=== PATIENT | female | born 1960 | race Caucasian/White ===

== ENCOUNTER → 2016-05-23 17:24 | Outpatient (CLI) | payer MEDICARE ==
[2015-06-14 07:17] VITALS: BMI 21.7
[~2016-05-23 17:24] MED LIST: LIPITOR10 MG PO; PRILOSEC20 MG PO; ZESTORETIC 10/11 TAB PO
== END | disposition home or self-care (01) ==
LOC: D.MAMMO 16:00
DX: Z12.31 Encounter for screening mammogram for malignant neoplasm of breast (principal)

== ENCOUNTER 2016-11-12 11:27 | Outpatient (CLI) | payer MEDICARE ==
[~2016-11-12] VITALS: Ht 172.7 cm; Wt 67.3 kg
--- NOTE | ~2016-11-12 | HEMODYNAMI ---
PATIENT:DERRICK NOVOA MEDICAL RECORD: [id number] : 64 LOCATION:D.CAT ADMISSION DATE: 11/12/16 Generatedon:11/12/201614:41 Patient name: DERRICK NOVOA Patient #: [id number] SSN: : 1960 Date of study: 11/12/2016 Page: Of Hemodynamic Procedure Report Patient Data Patient Demographics Procedure consent was obtained First Name: DERRICK Gender: Female Last Name: SOMMER : 1960 Middle Initial: JAMEY Age: 55 year(s) Patient #: [id number] Race: Unknown Additional ID: [id number] Contact details Address: [address] [place] [address] State: [place] City: [place] Zip code: [facility] Past Medical History Allergies Allergen Reaction Date Comments Reported Codeine 11/12/2016 Other allergy 11/12/2016 HYDROCODONE, STEROIDS, LEVAQUIN Admission Admission Data Admission Date: 11/12/2016 Admission Time: 11:27 Lab Results Lab Result Date: 11/12/2016 Lab Result Time: 0:00 Biochemistry Name Units Result Min Max Creatinine mg/dl 0.8 --(-*--)-- 0.6 1.3 CBC Name Units Result Min Max Hemoglobin g/dl 14.4 --(*---)-- 13.5 17.5 Procedure Procedure Types Cath Procedure Miscellaneous Procedures Moderate Sedation up to 15 minutes Peripheral Cath Diagnostic Procedure Cath Peripheral Renal Arteriogram Procedure Description Procedure Date Procedure Date: 11/12/2016 Procedure Start Time: 14:30 Procedure End Time: 14:40 Procedure Staff Name Function Seth Grossman MD Performing Physician Scarlett Kidd RT Scrub Kumar Weinberg RT Scrub Jonathon Galindo RN Nurse Jose Pham RN Batch Heat Treat Operator Maeve Rosales RT Monitor Procedure Data Cath Procedure Fluoroscopy Diagnostic fluoroscopy Total fluoroscopy Time: 0.7 time: 0.7 min min Diagnostic fluoroscopy Total fluoroscopy dose: 69 dose: 69 mGy mGy Contrast Material Contrast Material Type Amount (ml) Isovue 300 29 Entry Location Entry Primary Successful Side Size Upsize Upsize Entry Closure Succes sful Closure Location (Fr) 1 (Fr) 2 (Fr) Remarks Device Remarks Femoral Right 5 Fr Exoseal artery Estimated blood loss: 5 ml Diagnostic catheters Device Type Used For End Catheter Placement Diagnostic Infinity 5Fr Renal 3DRC catheter arteriography without flush -selective Procedure Medications Medication Administration Route Dosage Oxygen NC 2 l/min 0.9% NaCl I.V. 100 ml/hr Zofran I.V. 4 mg Heparin Flush Bag added to field 2 bags (1000units/500ml NS) Versed I.V. 2 mg Fentanyl I.V. 100 mcg Versed I.V. 1 mg Versed I.V. 1 mg Hemodynamics Rest Heart Rate: 55 (bpm) Pre Cath Intra NCS Post Cath Vital Signs Time Heart Resp SPO2 etCO2 [id number] NIBP (mmHg) Rhythm Pain Sedation Rate (ipm) (%) (mmHg) (mmHg) Status Level (bpm) 14:19:49 56 22 96 0 0 180/95(112) NSR 0 (11) 10(A) , No pain 14:24:11 55 22 97 0 0 178/93(145) NSR 0 (11) 10(A) , No pain 14:28:37 56 16 96 0 0 165/83(116) NSR 0 (11) 10(A) , No pain 14:32:57 56 20 96 0 0 152/82(126) NSR 0 (11) 10(A) , No pain 14:37:13 56 16 95 0 0 161/81(99) NSR 0 (11) 10(A) , No pain Medications Time Medication Route Dose Verified Delivered Reason Notes Effec tiveness by by 14:16:40 Oxygen NC 2 Jonathon Jonathon Per l/min Josie Galindo physician RN RN 14:17:01 0.9% NaCl I.V. 100 Jonathon Jonathon Per ml/hr Josie Galindo physician RN RN 14:17:29 Zofran I.V. 4 mg Jonathon Jonathon Per Josie Galindo physician RN RN 14:17:46 Heparin Flush added 2 Jonathon Jonathon used for Bag to bags Josie Galindo procedure (1000units/500ml field RN RN NS) 14:27:01 Versed I.V. 2 mg Jonathon Jonathon for Lorigan Lorigan sedation RN RN 14:28:15 Fentanyl I.V. 100 Jonathon Jonathon for mcg Lorigan Lorigan sedation RN RN 14:32:38 Versed I.V. 1 mg Jonathon Jonathon for Lorigan Lorigan sedation RN RN 14:37:42 Versed I.V. 1 mg Jonathon Jonathon for Lorigan Lorigan sedation RN healthcare prof Log Time Note 13:56:17 Jose Pham RN sent for patient. Start room use. 13:56:18 Time tracking: Regular hours 13:56:24 Plan of Care:Hemodynamics will remain stable., Cardiac rhythm will remain stable., Comfort level will be maintained., Respiratory function will remain adequate., Patient/ family verbilizes understanding of procedure., Procedure tolerated without complication., Recovers from procedure without complications.. 14:11:58 Patient received from Pre/Post Procedure Room to CCL 1 Alert and oriented. Tansferred to table in Supine position. 14:12:17 Warm blankets applied, and erika hugger turned on for patient comfort. 14:12:18 Correct patient and procedure confirmed by team. 14:12:19 Signed procedure consent form obtained from patient. 14:12:20 ECG and BP/O2 sat monitors applied to patient. 14:13:45 Full Disclosure recording started 14:16:40 Oxygen 2 l/min NC was administered by Jonathon Galindo RN; Per physician; 14:17:01 0.9% NaCl 100 ml/hr I.V. was administered by Jonathon Galindo RN; Per physician; 14:17:29 Zofran 4 mg I.V. was administered by Jonathon Galindo RN; Per physician; 14:17:46 Heparin Flush Bag (1000units/500ml NS) 2 bags added to field was administered by Jonathon Galindo RN; used for procedure; 14:17:52 Vital chart was started 14:18:56 Rhythm: sinus rhythm 14:19:09 H&P Date Dictated: 11/08/2016 Within 30 days and on chart., H&P Addendum completed by physician on day of procedure. (MUST COMPLETE FOR ALL OUTPATIENTS). 14:19:11 Pre-procedure instructions explained to patient. 14:19:11 Pre-op teaching completed and patient verbalized understanding. 14:19:12 Family in patients room. 14:19:20 Patient NPO since Midnight. 14:20:23 Patient allergic to Codeine 14:20:48 Patient allergic to Other allergyHYDROCODONE, STEROIDS, LEVAQUIN 14:20:53 Is the patient allergic to Iodine/contrast media? No. 14:20:56 Is patient on blood thinner?No 14:21:37 Patient diabetic? No. 14:21:41 Previous problem with sedation/anesthesia? No ? 14:21:42 Snore? Yes 14:21:42 Sleep apnea? Yes 14:21:43 Deviated septum? No 14:21:56 Opens mouth fully? Yes 14:21:57 Sticks out tongue? Yes 14:22:05 Airway obstruction? No ? 14:22:09 Dentures? Yes ? 14:22:27 Pre procedure: right dorsailis pedis pulse 2+ Normal; easily identifiable; not easily obliterated 14:22:32 Patient pain scale 0/10 ?. 14:22:39 IV patent on arrival in left hand with 0.9% NaCl at [facility]. 14:23:12 Lab Result : Creatinine 0.8 mg/dl 14:23:12 Lab Result : Hemoglobin 14.4 g/dl 14:23:15 Lab results completed and on chart. 14:23:21 Right groin area was prepped with chlora-prep and draped in sterile fashion 14:23:22 Alarms reviewed by R. N. 14:23:22 Sharps counted by scrub and verified by R.N. 14:23:31 Acist Syringe opened to sterile field. 14:23:31 Bag Decanter opened to sterile field. 14:23:32 Medline Cath Pack opened to sterile field. 14:23:32 Terumo 5Fr [place] Sheath opened to sterile field. 14:23:33 St Mihai 260cm J .035 wire opened to sterile field. 14:23:34 Acist Hand Control opened to sterile field. 14:23:35 Acist Manifold opened to sterile field. 14:23:36 Tegaderm 4 x 4 opened to sterile field. 14:23:51 Final Timeout: patient, procedure, and site verified with staff and physician. All members of the team are in agreement. 14:23:53 Right groin site verified by team. 14:23:55 Physical assessment completed. ASA score P 2 - A patient with mild systemic disease as per Seth Grossmna MD. 14:23:59 Sedation plan: IV Moderate Sedation Versed, Fentanyl 14:27:01 Versed 2 mg I.V. was administered by Jonathon Galindo RN; for sedation; 14:28:15 Fentanyl 100 mcg I.V. was administered by Jonathon Galindo RN; for sedation; 14:28:49 Zero performed for pressure channel P1 14:30:55 Procedure started. 14:30:59 Local anesthetic to right femoral artery with Lidocaine 2% by Seth Grossman MD.INITIAL ACCESS ONLY 14:31:53 A 5 Fr sheath was inserted into the Right Femoral artery 14:32:38 Versed 1 mg I.V. was administered by Jonathon Galindo RN; for sedation; 14:32:51 A Diagnostic Infinity 5Fr 3DRC catheter was advanced over the wire and used for Renal arteriography without flush -selective. 14:35:00 Catheter removed. 14:35:12 Cordis 5Fr Exoseal opened to sterile field. 14:35:24 Sheath removed intact; hemostasis achieved with Exoseal to the Right Femoral artery. 14:35:26 Procedure ended.(Physican Out) 14:35:37 Fluoroscopy time 00.70 minutes. 14:35:40 Flurop Dose total: 69 14:35:40 Fluoroscopy dose: 69 mGy 14:35:45 Contrast amount:Isovue 300 29ml. 14:35:46 Sharps counted by scrub and verified by R.N. 14:35:47 Insertion/operative site no bleeding no hematoma. 14:35:50 Post-op/insertion site Right Femoral artery dressed using a 4 x 4 and Tegaderm. 14:35:53 Post right femoral artery:stable, clean and dry 14:35:54 Post Procedure Pulses reassessed and unchanged 14:35:57 Post-procedure physical assessment completed. ASA score P 2 - A patient with mild systemic disease as per Seth Grossman MD. 14:36:18 Post procedure rhythm: unchanged. 14:36:21 Estimated blood loss: 5 ml 14:36:22 Post procedure instruction explained to patient.Patient verbalizes understanding. 14:36:23 Patient needs reinforcement of post procedure teaching. 14:36:29 Procedure type changed to Cath procedure, Miscellaneous Procedures, Moderate Sedation up to 15 minutes, Peripheral Cath Diagnostic Procedure, Cath Peripheral, Renal Arteriogram 14:36:33 See physician's report for complete and final results. 14:37:01 Procedure and supply charges have been captured, reviewed, submitted and are correct. 14:37:42 Versed 1 mg I.V. was administered by Jonathon Galindo RN; for sedation; 14:40:13 Vital chart was stopped 14:40:15 Report given to Pre/Post Procedure Room. 14:40:19 Patient transfered to Pre/Post Procedure Room with Stretcher. 14:40:25 Procedure ended. 14:40:25 Full Disclosure recording stopped 14:40:28 End room use (Document Last) Device Usage Item Name Manufacture Quantity Catalog Hospital Part Current Minimal Lo t# / Number Charge Number Stock Stock Serial# Code Acist Acist 1 92995 200049 251301 621832 20 Syringe Medical Systems Inc Bag Microtek 1 2002S 128653 98286 809905 5 Decanter Medical Inc. Medline Cardinal 1 [id number] 136010 54268 687077 5 Cath Pack Health Terumo 5Fr Terumo 1 [id number] 888842 934270 051026 [address] Mihai 1 905305 072380 845007 625783 30 260cm J .035 wire Acist Hand Acist 1 15863 259659 304804 144195 5 Control Medical Systems Inc Acist Acist 1 57139 450578 973625 008259 5 Manifold Medical Systems Inc Tegaderm 4 3M 1 1626W 081894 032011 648851 5 x 4 Diagnostic Cardinal 1 [id number] 758513 917045 921458 9 Thumb Readingity Health 5Fr 3DRC catheter Cordis 5Fr Cardinal 1 EX500 258357 187130 834262 10 [employer] Signature [place] Stage Time Signature Unsigned Intra-Procedure 11/12/2016 Maeve 2:41:37 PM Counts RT(R) Signatures Monitor : Maeve Signature : Counts RT Date : Time : [address] [address]
[2016-11-12 12:35] LABS: BASOPHILS 0.3 % (0-2); HEMATOCRIT 41.2 % (36.0-48.0); HEMOGLOBIN 14.4 g/dL (12-16); IMMATURE GRANULOCYTES 0.2 % (0-5); LYMPHOCYTES 33.4 % (15-50); MCH 31.8 pg (26.0-34.0); MCV 90.9 fL (80.0-100.0); MEAN PLATELET VOLUME 11.7 fL (7.4-10.4); NEUTROPHILS 55.1 % (40-80); PLATELET COUNT 146 10x3/uL (130-400); RBC 4.53 10x6/uL (4.00-5.40); RDW 13.4 % (11.5-14.5); WBC 5.8 10x3/uL (4.8-10.8)
[2016-11-12] MEDS ORDERED: METOPROLOL TART50 MG PO (12:38)
[2016-11-12] MEDS ORDERED: PHENERGAN25 M1 PO (12:38)
[2016-11-12] MEDS ORDERED: HYDRALAZINE HCL50 MG PO (12:39)
[2016-11-12] MEDS ORDERED: REQUIP0.5 MG PO (12:40)
[2016-11-12] MEDS ORDERED: ZANAFLEX4 MG PO (12:42)
[2016-11-12] MEDS ORDERED: ATACAND HCT PO (12:44)
[2016-11-12 12:50] VITALS: BP 168/98; Ht 172.7 cm; Wt 67.3 kg
[2016-11-12 12:54] LABS: CALC OSMOLALITY 280 mosm/kg (275-300); CALCIUM 8.8 mg/dL (8.5-10.1); CARBON DIOXIDE 25.3 mmol/L (21.0-32.0); CHLORIDE - SERUM 106 mmol/L (98-107); CREATININE - SERUM 0.8 mg/dL (0.6-1.3); GLUCOSE 95 mg/dL (74-106); POTASSIUM - SERUM 4.3 mmol/L (3.5-5.1); SODIUM 142 mmol/L (136-145); UREA NITROGEN 8 mg/dL (7-18); eGFR NON AFRICAN AMERICAN 79 mL/min (90-120)
--- NOTE | 2016-11-12 15:15 | NUR ---
RIGHT GROIN CDI, NO HEMATOMA OR BLEEDING AT SITE, RESTING WITH FAMILY AT SIDE
--- NOTE | 2016-11-12 15:45 | NUR ---
NO CHANGES IN ASSESSMENT, RIGHT GROIN CDI, DENIES PAIN
--- NOTE | 2016-11-12 17:15 | NUR ---
IV D'C WITH CATH TIP INTACT, WRITTEN AND VERBAL D'C INSTRUCTIONS GIVEN TO PT AND -VERBAL UNDERSTANDING NOTED. D'C HOME WITH FAMILY
--- NOTE | 2016-11-14 08:14 | OP ---
PATIENT NAME: DERRICK NOVOA MEDICAL RECORD: [id number] :64 LOCATION:D.CAT ADMISSION DATE: SURGEON: UMBERTO FULLER MD DATE OF OPERATION: 11/12/2016 PROCEDURE: Renal arteriography. CATHETERS: A 5-Bhutanese sheath was placed in the right femoral artery. A 3DRC catheter was used to subselectively cath both renal artery ostia. FINDINGS: 1. Left renal artery ostium was engaged and multiple views were taken. This showed no evidence of smooth-walled vessel, no evidence of flow obstructive stenosis. 2. The catheter was turned to the right renal artery. This was subselectively engaged and this showed mild wall disease with no significant stenosis of the right renal artery. IMPRESSION: No significant stenosis either renal artery. TRANSINT:[id number] Voice Confirmation ID: [id number] DOCUMENT ID: [id number] UMBERTO FULLER MD at 0814 CC: [id number] DICTATION DATE: 11/12/16 1443 LOCAL COMBINATION TRUCK DRIVER: 11/12/16 1823 DEP CLI 11/12/16 [facility] [address] [place] [address]
== END 2016-11-12 17:20 | disposition home or self-care (01) ==
LOC: D.CATH 11:27
PROVIDERS: Internal Medicine Interventional Cardiology
DX: I70.1 Atherosclerosis of renal artery (principal); Z01.812 Encounter for preprocedural laboratory examination

== ENCOUNTER → 2016-11-27 08:32 | Outpatient (CLI) | payer MEDICARE ==
[2016-11-12 12:50] VITALS: BMI 22.5
[~2016-11-27 08:32] MED LIST changes: +ATACAND HCT PO; +HYDRALAZINE HCL50 MG PO; +METOPROLOL TART50 MG PO; +PHENERGAN25 M1 PO; +REQUIP0.5 MG PO; +ZANAFLEX4 MG PO
== END | disposition home or self-care (01) ==
LOC: D.MAMMO 08:32
DX: N63 Unspecified lump in breast (principal)

== ENCOUNTER → 2017-07-23 14:31 | Outpatient (CLI) | payer MEDICARE ==
[2016-11-12 12:50] VITALS: BMI 22.5
== END | disposition home or self-care (01) ==
LOC: D.CT 14:31
DX: R10.9 Unspecified abdominal pain (principal)

== ENCOUNTER → 2017-09-01 07:26 | Outpatient (CLI) | payer MEDICARE ==
[2016-11-12 12:50] VITALS: BMI 22.5
== END | disposition home or self-care (01) ==
LOC: D.CT 07:26
DX: K57.92 Diverticulitis of intestine, part unspecified, without perforation or abscess without bleeding (principal)

== ENCOUNTER → 2017-12-08 14:28 | Outpatient (CLI) | payer MEDICARE ==
[2016-11-12 12:50] VITALS: BMI 22.5
== END | disposition home or self-care (01) ==
LOC: D.LAB 14:28
DX: K52.9 Noninfective gastroenteritis and colitis, unspecified (principal)

== ENCOUNTER 2017-12-16 08:13 | Day surgery (SDC) | payer MEDICARE ==
[~2017-12-16] VITALS: Ht 172.7 cm; Wt 66.8 kg
--- NOTE | ~2017-12-16 | OP ---
PATIENT NAME: DERRICK NOVOA MEDICAL RECORD: [id number] :64 LOCATION:D.OPS ADMISSION DATE: SURGEON: JUAN DOMINGUEZ MD DATE OF OPERATION: 12/16/2017 PREOPERATIVE DIAGNOSES: 1. Epigastric abdominal pain. 2. Gastroesophageal reflux. 3. History of colon polyps. POSTOPERATIVE DIAGNOSES: 1. Epigastric abdominal pain. 2. Gastroesophageal reflux. 3. History of colon polyps. 4. Gastric erosion. PROCEDURES: 1. Esophagogastroduodenoscopy with antral and distal esophageal biopsies. 2. Total colonoscopy to cecum. SURGEON: Juan Dominguez MD MANUFACTURING CHIEF ENGINEER: None. BLOOD LOSS: Minimal. ANESTHESIA: IV sedation. COMPLICATIONS: None. ENDOSCOPIC COURSE: The patient was conveyed to endoscopy suite electively on 12/16/2017. IV sedation was induced by the anesthesia staff. A bite block was inserted. A gastroscope was inserted into the mouth. It was advanced easily into the hypopharynx. The esophagus was easily intubated as were the stomach and duodenum. Upon withdrawal, retroflexed and angulus views were obtained. Antral biopsies were obtained. Distal esophageal biopsies were obtained. The endoscope was then withdrawn under direct vision. The patient was turned 180 degrees and placed in the Smith position. A digital rectal examination was performed. A colonoscope was inserted through the anus. It was easily advanced to the cecum. The prep was adequate. I slowly withdrew the endoscope. The pullback was greater than a 14-minute pullback. I dragged the folds. A combination of normal imaging and narrow band imaging was utilized. A retroflexed view was obtained in the rectum. I then unretroflexed the scope and removed it under direct vision. The patient was then conveyed back to her room. I will plan for her next surveillance colonoscopy to take place in 3 years. TRANSINT:[id number] Voice Confirmation ID: [id number] DOCUMENT ID: [id number] OPERATIVE REPORT [id number] DERRICK NOVOA JUAN DOMINGUEZ MD at 1328 CC: [id number] DICTATION DATE: 12/16/17 1114 DISTRIBUTOR SALES CONSULTANT: 12/16/17 1126 [facility] 12/16/17 [place] [address]
[2017-12-16 08:34] LABS: HEMATOCRIT 44.9 % (36.0-48.0); HEMOGLOBIN 15.9 g/dL (12-16); MCHC 35.4 g/dL (31.0-37.0); MCV 93.2 fL (80.0-100.0); MEAN PLATELET VOLUME 11.3 fL (7.4-10.4); RBC 4.82 10x6/uL (4.00-5.40); RDW 13.2 % (11.5-14.5); WBC 9.2 10x3/uL (4.8-10.8)
[2017-12-16 08:53] LABS: ANION GAP 14.5 mmol/L (8-16); CALCIUM 9.5 mg/dL (8.5-10.1); CARBON DIOXIDE 28.6 mmol/L (21.0-32.0); CREATININE - SERUM 0.9 mg/dL (0.6-1.3); POTASSIUM - SERUM 4.1 mmol/L (3.5-5.1)
[2017-12-16] MEDS ORDERED: BYSTOLIC20 MG PO (08:54)
[2017-12-16] MEDS ORDERED: BACLOFEN10 MG (08:55)
[2017-12-16 09:05] VITALS: BP 126/67; Ht 172.7 cm; Wt 66.8 kg
== END 2017-12-16 12:59 | disposition home or self-care (01) ==
LOC: D.OPS 08:13
PROVIDERS: Anesthesiology
DX: K25.9 Gastric ulcer, unspecified as acute or chronic, without hemorrhage or perforation (principal); K21.9 Gastro-esophageal reflux disease without esophagitis; Z86.010 Personal history of colon polyps; Z01.812 Encounter for preprocedural laboratory examination

== ENCOUNTER 2018-01-19 08:00 | Outpatient (CLI) | payer MEDICARE ==
[2017-12-16 09:05] VITALS: BMI 22.4
[~2018-01-19 08:00] MED LIST changes: +BACLOFEN10 MG; +BYSTOLIC20 MG PO
== END 2018-01-19 09:00 | disposition home or self-care (01) ==
LOC: D.MAMMO 08:00
DX: Z12.31 Encounter for screening mammogram for malignant neoplasm of breast (principal)

== ENCOUNTER → 2018-01-22 07:04 | Outpatient (CLI) | payer MEDICARE ==
[2017-12-16 09:05] VITALS: BMI 22.4
== END | disposition home or self-care (01) ==
LOC: D.NM 07:04
DX: R10.11 Right upper quadrant pain (principal)

== ENCOUNTER → 2018-02-03 07:18 | Outpatient (CLI) | payer MEDICARE ==
[2017-12-16 09:05] VITALS: BMI 22.4
== END | disposition home or self-care (01) ==
LOC: D.US 07:18
DX: R10.9 Unspecified abdominal pain (principal)

== ENCOUNTER 2018-03-20 07:40 | Day surgery (SDC) | payer MEDICARE ==
[2018-03-19 09:45] LABS: HEMATOCRIT 43.6 % (36.0-48.0); HEMOGLOBIN 15.3 g/dL (12-16); MCH 32.6 pg (26.0-34.0); MCHC 35.1 g/dL (31.0-37.0); MEAN PLATELET VOLUME 11.3 fL (7.4-10.4); RBC 4.69 10x6/uL (4.00-5.40); RDW 12.7 % (11.5-14.5); WBC 5.8 10x3/uL (4.8-10.8)
[2018-03-19 09:55] LABS: ANION GAP 14.6 mmol/L (8-16); CARBON DIOXIDE 26.3 mmol/L (21.0-32.0); POTASSIUM - SERUM 3.9 mmol/L (3.5-5.1)
[~2018-03-20] VITALS: Ht 172.7 cm; Wt 70.5 kg
[~2018-03-20 07:40] MED LIST changes: -BACLOFEN10 MG; +BACLOFEN10 MG PO
[2018-03-20] MEDS ORDERED: PROBIOTIC BLEN1 EACH (10:49)
[2018-03-20 10:50] VITALS: BP 136/70; Ht 172.7 cm; Wt 70.5 kg
--- NOTE | 2018-03-26 14:33 | OP ---
PATIENT NAME: DERRICK NOVOA MEDICAL RECORD: [id number] :64 LOCATION:D.OPS ADMISSION DATE: SURGEON: CONSTANZA DOMINGUEZ MD DATE OF OPERATION: 03/20/2018 PREOPERATIVE DIAGNOSES: 1. Biliary dyskinesia. 2. Hepatic steatosis by ultrasound. 3. Right lower quadrant pain. POSTOPERATIVE DIAGNOSES: 1. Biliary dyskinesia. 2. Hepatic steatosis by ultrasound. 3. Right lower quadrant pain. 4. Hepatomegaly. PROCEDURE: 1. Laparoscopic cholecystectomy. 2. Intraoperative cholangiography without immediate surgeon interpretation. 3. A 14-gauge core needle liver biopsies. 4. Laparoscopic appendectomy. SURGEON: Constanza Dominguez MD PLASTER MAKER: None. BLOOD LOSS: Minimal. ANESTHESIA: General. COMPLICATIONS: None. The indication for the liver biopsy was hepatic steatosis by ultrasound as well as hepatomegaly. Indication for the appendectomy was lower abdominal pain, mainly right lower quadrant abdominal pain. OPERATIVE COURSE: The patient was conveyed the operating room electively on 03/20/2018. General anesthesia was induced by the anesthesia staff. The abdomen was sterilely prepped and draped. A small skin incision was accomplished in the left upper quadrant. A Veress needle was inserted through the skin incision into the peritoneal cavity. CO2 insufflation was begun. Once a sufficient pneumoperitoneum had been achieved, a 5-mm trocar was inserted through the incision in the left upper quadrant. Under direct internal vision utilizing television camera, a 12-mm trocar was inserted through an incision at the umbilicus. Another 5-mm trocar was inserted through an incision in the epigastrium. Another 5-mm trocar was inserted through an incision far laterally in the right upper quadrant. During insertion of the Veress needle and all trocars, there appeared to have been no injury to the bowels, any intraperitoneal or retroperitoneal structures. An abdominal survey was undertaken. Under laparoscopic guidance, I percutaneously accessed the right upper quadrant with a core needle biopsy device. Core biopsies of the liver were obtained over its convexity. The biopsy sites were made hemostatic with electrocautery. OPERATIVE REPORT [id number] DERRICK NOVOA I then advanced a cholangiogram trocar. I punctured the fundus of the gallbladder. I aspirated bile. I then injected dye. Under real time fluoroscopy, static cholangiographic images were obtained and these were sent to the radiologist for interpretation. I withdrew the cholangiogram trocar. I grasped the gallbladder and retracted it cephalad. I grasped the infundibulum and retracted it laterally. Blunt dissection was begun in the triangle of Calot. One cystic duct and two cystic arteries were identified. These were clipped multiply and divided between clips. The gallbladder was then excised from its bed in the liver. It was placed within a bag retrieval device and was withdrawn through the umbilical fascial defect. A 12-mm trocar was replaced and the abdomen reinsufflated. I was able to identify the appendix utilizing some laparoscopic [place]cocks. I grasped the appendix and retracted it upward, created a window in the mesoappendix with a laparoscopic dissector. I took down the mesoappendix with the laparoscopic EnSeal device. I then advanced an Endo-VERO type stapler with a blue load. I stapled across the tip of the cecum with this device. I placed the appendix within a bag retrieval device and withdrew it out through the umbilical fascial defect. A 12-mm trocar was replaced and the abdomen reinsufflated. I irrigated in the right lower quadrant and in the right upper quadrant. There was no bleeding even at low pressure of 8. The 12-mm trocar was removed. Utilizing the Leo-Shreyas suture closure device and 0 Vicryl sutures, I closed the fascia at the umbilicus. The umbilical skin was closed with interrupted 4-0 Vicryl Rapide sutures. I removed the rest of the trocars. The 5-mm trocar sites were closed with interrupted intracuticular 3-0 Vicryls. Benzoin and Steri-Strips were applied. The patient was then extubated and conveyed to post-anesthesia care unit where she was in stable condition. I will plan for her to go home with a prescription for Sturdivant as well as Colace. I will see her in the office in 2-3 weeks. TRANSINT:[id number] Voice Confirmation ID: [id number] DOCUMENT ID: [id number] CONSTANZA DOMINGUEZ MD at 1433 CC: BLUE JOSE DO [id number] DICTATION DATE: 03/20/18 1629 FOOD SERVICE WORKER: 03/21/18 0305 [facility] 03/20/18 [facility] [address] [place] [address]
== END 2018-03-20 17:50 | disposition home or self-care (01) ==
LOC: D.OPS 07:40 → D.PAN 09:45 → D.OPS 10:30 → D.PAN 12:00 → D.OPS 17:50
PROVIDERS: Anesthesiology
DX: K82.8 Other specified diseases of gallbladder (principal); K76.0 Fatty (change of) liver, not elsewhere classified; R16.0 Hepatomegaly, not elsewhere classified; R10.31 Right lower quadrant pain

== ENCOUNTER → 2019-06-28 08:51 | Outpatient (CLI) | payer OTHER ==
[2018-03-20 10:50] VITALS: BMI 23.6
--- NOTE | ~2019-06-28 | ST ---
PATIENT:DERRICK NOVOA MEDICAL RECORD: [id number] SEX: F LOCATION:[facility] ORDER #: ADMISSION DATE: 06/28/19 AGE OF PATIENT: 58 REFERRING PHYSICIAN: INTERPRETING PHYSICIAN: JAVED PEREZ MD DATE OF SERVICE: 06/28/2019 PROCEDURE: Nuclear stress test. INDICATION: Angina, hypertension, hyperlipidemia, diabetes. She was exercised on standard Lexiscan protocol with 33 mCi of sestamibi injected at peak stress, 11 mCi used previously for rest images. FINDINGS: Gated SPECT reveals preserved ejection fraction at 76% with good wall motion and thickening and brightening throughout all segments. SPECT imaging Cardiolite was used as myocardial perfusion agent. There is reversibility inferiorly, this includes the basal, mid, apical, inferior segments. Degree of reversibility is moderate to severe. The amount of myocardium involved is moderate. OVERALL IMPRESSION: 1. This is an intermediate risk abnormal nuclear stress test with reversible ischemia inferiorly. 2. Gated SPECT reveals preserved ejection fraction greater than 70%. In this patient with ongoing symptomatology, the current scan does suggest the presence of hemodynamically significant coronary artery disease. We will proceed with coronary angiography as followup study. TRANSINT:[id number] Voice Confirmation ID: [id number] DOCUMENT ID: [id number] JAVED PEREZ MD CC: BLUE JOSE DO [id number] DICTATION DATE: 06/29/19 1114 EXECUTIVE ASSOCIATE: 06/29/191920 DEP CLI 06/28/19 [facility] [address] [place] [address]
[~2019-06-28 08:51] MED LIST changes: +PROBIOTIC BLEN1 EACH
== END | disposition home or self-care (01) ==
LOC: D.HCCARDIO 08:51
PROVIDERS: ATTEND Internal Medicine Interventional Cardiology
DX: I20.9 Angina pectoris, unspecified (principal)

== ENCOUNTER 2019-07-05 06:34 | Outpatient (CLI) | payer OTHER ==
[~2019-07-05] VITALS: Ht 172.7 cm; Wt 69.1 kg
--- NOTE | ~2019-07-05 | HEMODYNAMI ---
PATIENT:DERRICK NOVOA MEDICAL RECORD: [id number] : 64 LOCATION:D.CAT ADMISSION DATE: 07/05/19 Generatedon:07/05/20199:38 Patient name: DERRICK NOVOA Patient #: [id number] SSN: [id number] : 1960 Date of study: 07/05/2019 Page: Of Hemodynamic Procedure Report Patient Data Patient Demographics Procedure consent was obtained First Name: DERRICK Gender: Female Last Name: SOMMER : 1960 Middle Initial: JAMEY Age: 58 year(s) Patient #: [id number] Race: SSN: [id number] Additional ID: [id number] Contact details [address]: [address] [place] [address] State: [place] City: [place] Zip code: [facility] Past Medical History Allergies Allergen Reaction Date Comments Reported Codeine 11/12/2016 Other 11/12/2016 HYDROCODONE, STEROIDS, LEVAQUIN allergy Other 07/05/2019 CODEINE/HYDROCODONE/LEVAQUIN/STEROIDS allergy Admission Admission Data Admission Date: 07/05/2019 Admission Time: 6:34 Arrival Date: 07/05/2019 Arrival Time: 0:00 Insurance Payor: Medicare [facility] #: [id number] Height (in.): 68.11 BSA: 1.82 (m2) Height (cm.): 173 BMI: 23.05 (kg/m2) Weight (lbs.): 152.12 Weight (kg.): 69 Lab Results Lab Result Date: 07/05/2019 Lab Result Time: 0:00 Biochemistry Name Units Result Min Max BUN mg/dl 10 --(-*--)-- 7 18 Creatinine mg/dl 1.1 --(--*-)-- 0.6 1.3 eGFR ml/min 54 *-(----)-- 90 120 NONAFRICAN CBC Name Units Result Min Max Hematocrit % 43.9 --(*---)-- 42 54 Hemoglobin g/dl 14.6 --(-*--)-- 13.5 17.5 Procedure Procedure Types Cath Procedure Diagnostic Procedure [facility] w/Coronaries Sedation Charges Moderate Sedation up to 30 minutes PCI Procedure Coronary Stent Coronary Stent Initial Hemochron ACT Test Procedure Description Procedure Date Procedure Date: 07/05/2019 Procedure Start Time: 8:44 Procedure End Time: 9:36 Procedure Staff Name Function Seth Alfredo MD Performing Physician Annmarie Spaulding RN Nurse Bel Rivera RT Monitor Melida Ford RT Scrub Procedure Data Cath Procedure Fluoroscopy Diagnostic fluoroscopy Total fluoroscopy Time: time: 15.9 min 15.9 min Diagnostic fluoroscopy Total fluoroscopy dose: dose: 1395 mGy 1395 mGy Contrast Material Contrast Material Type Amount (ml) Isovue 300 181 Entry Location Entry Primary Successful Side Size Upsize Upsize Entry Closure Succes sful Closure Location (Fr) 1 (Fr) 2 (Fr) Remarks Device Remarks Femoral Right 5 Fr 6 Fr Exoseal artery Short Estimated blood loss: 10 ml Diagnostic catheters Device Type Used For End Catheter Placement MULTIPACK JL 4.0 5Fr Left Coronary catheter Angiography MULTIPACK 3DRC 5Fr Right Coronary catheter Angiography MULTIPACK Pigtail 5 Fr LV Angiography catheter Procedure Complications No complications Procedure Medications Medication Administration Route Dosage Phenergan 25 mg Oxygen etCO2 Nasal cannula 2 l/min Lidocaine 2% added to field 20 Heparin Flush Bag added to field 2 bags (1000units/500ml NS) 0.9% NaCl I.V. 100 ml/hr Zofran I.V. 4 mg Versed I.V. 2 mg Fentanyl I.V. 50 mcg Versed I.V. 2 mg Fentanyl I.V. 50 mcg Heparin Bolus I.V. 4000 units Integrilin (Bolus I.V. 6.2 ml 2mg/ml) Versed I.V. 2 mg Fentanyl I.V. 50 mcg Nitroglycerin IC/IA I.C. 150 mcg Heparin Bolus I.V. 2000 units Versed I.V. 1 mg Fentanyl I.V. 50 mcg Plavix P.O. 600 mg Hemodynamics Rest BSA: 1.82 (m2) HGB: 14.6 (g/dl) O2 Consumption: Estimated: 169.16 (ml/min) O2 Co nsumption indexed: Estimated:92.95 (ml/min/m) Heart Rate: 62 (bpm) Pressure Samples Time Site Value (mmHg) Purpose Heart Use Rate(bpm) 8:50 LV 115/9,13 Snapshot 60 Gradients Valve Time Site Site Mean SEP/DFP Peak To Heart Use 1 2 (mmHg) (sec/min) Peak Rate (mmHg) (bpm) Aortic 8:51 LV AO 60 Snapshots Pre Cath Intra NCS Post Cath Vital Signs Time Heart Resp SPO2 etCO2 NIBP (mmHg) Rhythm Pain Sedation Rate (ipm) (%) (mmHg) Status Level (bpm) 8:24:35 66 15 97 0 124/98(105) NSR 0 (11) 10(A) , No pain 8:28:41 57 21 98 0 135/92(105) NSR 0 (11) 10(A) , No pain 8:32:51 62 16 97 0 146/90(102) NSR 0 (11) 10(A) , No pain 8:37:03 62 17 98 36.8 120/84(100) NSR 0 (11) 10(A) , No pain 8:41:11 65 15 97 45.9 135/83(102) NSR 0 (11) 10(A) , No pain 8:45:21 58 11 96 42.9 112/76(91) NSR 0 (11) 10(A) , No pain 8:49:30 61 13 93 39.8 121/65(89) NSR 0 (11) 9(A) , No pain 8:53:42 61 12 96 33.1 113/65(79) NSR 0 (11) 9(A) , No pain 8:57:50 62 13 94 36.1 108/68(79) NSR 0 (11) 9(A) , No pain 9:02:45 72 13 96 40.6 132/85(99) NSR 0 (11) 9(A) , No pain 9:06:57 62 12 97 42.1 141/80(109) NSR 0 (11) 9(A) , No pain 9:11:11 63 10 96 38.3 143/85(100) NSR 0 (11) 9(A) , No pain 9:15:27 61 13 94 38.3 136/81(104) NSR 0 (11) 9(A) , No pain 9:19:39 58 14 93 31.5 123/82(97) NSR 0 (11) 9(A) , No pain 9:23:51 58 15 95 39.8 112/71(89) NSR 0 (11) 9(A) , No pain 9:28:01 58 14 92 42.9 111/62(89) NSR 0 (11) 9(A) , No pain 9:32:13 55 13 94 44.4 99/59(74) NSR 0 (11) 9(A) , No pain Medications Time Medication Route Dose Verified Delivered Reason Notes Effectiveness by by 8:25:29 Phenergan I.M. to 25 mg Seth Buffie Per physician Lt. GM [facility] Spaulding RN, MD 8:26:48 Oxygen etCO2 2 Seth Seth used for Nasal l/min [facility] procedure cannula MD BAEZ 8:26:54 Lidocaine 2% added 20ml Seth Seth for local to vial [facility] anesthetic field MD BAEZ 8:27:16 Heparin Flush added 2 Seth Seth used for Bag to bags [facility] procedure (1000units/500ml field MD BAEZ NS) 8:27:28 0.9% NaCl I.V. 100 Seth Rosalindaie Per physician ml/hr [facility] Spaulding RN, MD 8:27:44 Zofran I.V. 4 mg Seth Buffie Per physician [facility] Spaulding RN, MD 8:40:28 Versed I.V. 2 mg Seth Buffie for sedation [facility] Spaulding RN, MD 8:40:35 Fentanyl I.V. 50 Seth Buffie for sedation marie Rose RN, MD 8:45:58 Versed I.V. 2 mg Seth Buffie for sedation [facility] Spaulding RN, MD 8:46:02 Fentanyl I.V. 50 Seth Buffie for sedation [facility] Anthony Spaulding RN, MD 8:52:33 Heparin Bolus I.V. 4000 Seth Buffie for verifi ed units [facility] Spaulding RN anticoagulation with dr MD roque 8:53:37 Integrilin I.V. 6.2 Seth Buffie for wasted (Bolus 2mg/ml) ml [facility] Spaulding RN antiplatelet 3.8 ml MD therapy of vial 9:04:37 Versed I.V. 2 mg Seth Buffie for sedation [facility] Spaulding RN, MD 9:04:43 Fentanyl I.V. 50 Seth Buffie for sedation [facility] Anthony Spaulding RN, MD 9:11:53 Nitroglycerin I.C. 150 Seth Ann for IC/IA mcg [facility] Anthony Hagen MD, MD 9:15:30 Heparin Bolus I.V. 2000 Seth Anguiano for verifi ed units [facility] Spaulding RN anticoagulation with dr MD roque 9:22:38 Versed I.V. 1 mg Seth Anguiano for sedation [facility] Spaulding RN, MD 9:22:48 Fentanyl I.V. 50 Seth Anguiano for sedation mcg [facility] Spaulding RN, MD 9:34:39 Plavix P.O. 600 Seth Anguiano for mg [facility] Spaulding RN antiplatelet therapy Procedure Log Time Note 7:59:00 Informed consent obtained and on chart 8:01:51 Lab Result : Hemoglobin 14.6 g/dl 8:01:51 Lab Result : Hematocrit 43.9 % 8:01:51 Lab Result : eGFR NONAFRICAN 54 ml/min 8:01:51 Lab Result : BUN 10 mg/dl 8:01:51 Lab Result : Creatinine 1.1 mg/dl 8:02:00 Arrival Date: 07/05/2019 12:00:00 AM 8:02:27 Insurance Payor : Medicare 8:02:33 Patient Height : 68.11 inches 8:02:40 Patient Weight : 152.12 lbs 8:05:07 Procedure Status Elective Heart Cath (OP). 8:05:17 Time tracking: Regular hours (M-F 7:00 - 5:00) 8:05:24 Plan of Care:Hemodynamics will remain stable., Cardiac rhythm will remain stable., Comfort level will be maintained., Respiratory function will remain adequate., Patient/ family verbilizes understanding of procedure., Procedure tolerated without complication., Recovers from procedure without complications.. 8:06:14 ACC Patient presents with Stable Angina CCS Anginal Class 2--Slight limitation of ordinary activity. 8:07:11 Patient allergic to Other allergyCODEINE/HYDROCODONE/LEVAQUIN/STEROIDS 8:13:08 Melida TAYLOR(R) sent for patient. Start room use. 8:18:15 Patient received from Pre/Post Procedure Room to CCL 1 Alert and oriented. Tansferred to table in Supine position. 8:18:16 Warm blankets applied, and erika hugger turned on for patient comfort. 8:18:17 Correct patient and procedure confirmed by team. 8:18:18 ECG and BP/O2 sat monitors applied to patient. 8:23:38 Vital chart was started 8::43 Baseline sample Acquired. 8:24:01 Baseline sample Acquired. 8:24:07 Baseline sample Acquired. 8:24:18 Rhythm: sinus rhythm 8:24:35 Full Disclosure recording started 8:24:36 8::43 H&P Date Dictated: 07/05/2019 H&P Addendum completed by physician on day of procedure. (MUST COMPLETE FOR ALL OUTPATIENTS), New H&P dictated by physician.. 8:24:45 Pre-procedure instructions explained to patient. 8:24:46 Pre-op teaching completed and patient verbalized understanding. 8:24:50 Family unavailable. 8:24:53 Patient NPO since Midnight. 8:25:00 Is the patient allergic to Iodine/contrast media? No. 8:25:04 Was the patient premedicated? Yes 8:25:10 Is patient on blood thinner?No 8:25:16 Patient diabetic? Yes.DIET CONTROL. 8:25:29 Phenergan 25 mg I.M. to Lt. GM was administered by Annmarie Spaulding RN; Per physician; Verbal order read back and verified. 8:25:41 Patient not . Patient is over age 55. 8:25:43 ----Pre-sedation anethsthesia assessment.---- 8:25:50 Previous problem with sedation/anesthesia? Yes NAUSEA 8:25:56 Snore? Yes 8:25:59 Sleep apnea? No 8:26:02 Deviated septum? No 8:26:05 Opens mouth fully? Yes 8:26:07 Sticks out tongue? Yes 8:26:12 Airway obstruction? No ? 8:26:23 Dentures? Yes IN TIGHT 8:26:48 Oxygen 2 l/min etCO2 Nasal cannula was administered by Seth Alfredo MD; used for procedure; Verbal order read back and verified. 8:26:52 Pre procedure: right dorsailis pedis pulse 2+ Normal; easily identifiable; not easily obliterated 8:26:54 Lidocaine 2% 20ml vial added to field was administered by Seth Alfredo MD; for local anesthetic; Verbal order read back and verified. 8:27:16 Heparin Flush Bag (1000units/500ml NS) 2 bags added to field was administered by Seth Alfredo MD; used for procedure; Verbal order read back and verified. 8:27:16 Patient pain scale 3/10 CHEST AND SHOULDER. 8:27:28 0.9% NaCl 100 ml/hr I.V. was administered by Annmarie Spaulding RN; Per physician; Verbal order read back and verified. 8:27:35 IV patent on arrival in right antecubital with 0.9% NaCl at [facility]. 8:27:43 Lab results completed and on chart. 8:27:44 Zofran 4 mg I.V. was administered by Annmarie Spaulding RN; Per physician; Verbal order read back and verified. 8:27:56 Right groin area was prepped with chlora-prep and draped in sterile fashion 8:28:01 Alarms reviewed by R. N. 8:28:02 Alarms reviewed by R. N. 8:28:04 Sharps counted by scrub and verified by R.N. 8:28:13 Use device set Femoral Dx 8:28:14 ACIST Syringe (27372) opened to sterile field. 8:28:15 Bag Decanter (2002) opened to sterile field. 8:28:16 Medline Cath Pack ([id number]) opened to sterile field. 8:28:18 ACIST Hand Control (45804) opened to sterile field. 8:28:19 ACIST Manifold (97368) opened to sterile field. 8:28:20 DIAGNOSTIC Multipack 5Fr catheter set ([id number]) opened to sterile field. 8:28:21 Tegaderm 4 x 4 (1626W) opened to sterile field. 8:28:23 SHEATH 5FR [place] (RGS580) opened to sterile field. 8:28:24 EMERALD Guide Wire (849-992) opened to sterile field. 8:30:59 ANNMARIE CALLED PATIENTS . 8:38:32 Stress Test: no; abnormal INFERIORLY 8:39:40 SCAI IS NOT WORKING. 8:39:48 Physician arrived 8:39:49 --------ALL STOP TIME OUT------ 8:39:53 Final Timeout: patient, procedure, and site verified with staff and physician. All members of the team are in agreement. 8:39:56 Right groin site verified by team. 8:40:11 Fire Safety Assessment: A--An alcohol-based skin anteseptic being used preoperatively., C--Open oxygen or nitrous oxide is being used., D--An ESU, laser, or fiber-optic light is being used. 8:40:28 Versed 2 mg I.V. was administered by Annmarie Spaulding RN; for sedation; Verbal order read back and verified. 8:40:35 Fentanyl 50 mcg I.V. was administered by Annmarie Spaulding RN; for sedation; Verbal order read back and verified. 8:42:50 Physical assessment completed. ASA score P 2 - A patient with mild systemic disease as per Seth Alfredo MD. 8:42:57 3a) 45-59 Moderately reduced kidney function. 8:43:02 Maximum allowable contrast dose (3.7 X eGFR X 0.75)150 ml. 8:43:09 Sedation plan: IV Moderate Sedation Medication:Versed, Fentanyl 8:44:28 Procedure started. 8:44:40 Local anesthetic to right femoral artery with Lidocaine 2% by Seth Alfredo MD.INITIAL ACCESS ONLY 8:45:14 Zero performed for pressure channel P1 8:45:40 A 5 Fr sheath was inserted into the Right Femoral artery 8:45:47 A MULTIPACK JL 4.0 5Fr catheter was advanced over the wire and used for Left Coronary Angiography. 8:45:58 Versed 2 mg I.V. was administered by Annmarie Spaulding RN; for sedation; Verbal order read back and verified. 8:46:02 Fentanyl 50 mcg I.V. was administered by Annmarie Spaulding RN; for sedation; Verbal order read back and verified. 8:46:27 LCA angiography performed. 8:46:35 Injector settings: Ml/sec: 3, Volume: 6, 8:47:45 Catheter removed. 8:47:55 A MULTIPACK 3DRC 5Fr catheter was advanced over the wire and used for Right Coronary Angiography. 8:49:16 RCA angiography performed. 8:49:21 Injector settings: Ml/sec: 3, Volume: 6, 8:49:26 Catheter removed. 8:49:45 A MULTIPACK Pigtail 5 Fr catheter was advanced over the wire and used for LV Angiography. 8:50:50 EF : 55 % 8:50:59 LV hemodynamics recorded. 8:51:01 LV gram done using IRWIN 8:51:08 Injector settings: Ml/sec: 5, Volume: 15, 8:51:11 Catheter removed. 8:51:13 Catheter exchanged over wire. 8:51:16 SHEATH 6FR [place] (SSA665) opened to sterile field. 8:51:17 INFLATOR Merit BasixCompak (PX3199) opened to sterile field. 8:51:18 WHISPER 300cm guide wire ([id number]) opened to sterile field. 8:51:42 GUIDE 6FR HS I SH catheter ([id number]) opened to sterile field. 8:52:31 Sheath upsized to a 6 Fr Short. 8:52:33 Heparin Bolus 4000 units I.V. was administered by Annmarie Spaulding RN; for anticoagulation; verified with dr roque Verbal order read back and verified. 8:53:00 6 Fr HS1 SH guide catheter was inserted over the wire 8:53:24 ACC Pre-intervention YESICA Flow is 1. 8:53:37 Integrilin (Bolus 2mg/ml) 6.2 ml I.V. was administered by Annmarie Spaulding RN; for antiplatelet therapy; wasted 3.8 ml of vial Verbal order read back and verified. 8:54:23 WHISPER 300 wire advanced. 8:54:38 Pre PCI Site: [place] mRCA has 100% stenosis. 8:56:07 Inflate balloon Inflation number: 1 A EMERGE OTW 2.5 x 15 balloon ([id number]) was prepped and advanced across the Mid RCA , then inflated to 10 EYAL for 0:17 (min:sec) . 8:56:29 Inflation number: 2 The EMERGE OTW 2.5 x 15 balloon ([id number]) was reinflated across the Mid RCA , to 12 EYAL for 0:14 (min:sec) . 9:00:51 Balloon removed over the wire. 9:03:47 Inflate balloon Inflation number: 3 A EMERGE OTW 1.5 x 15 balloon ([id number]) was prepped and advanced across the Mid RCA , then inflated to 12 EYAL for 0:15 (min:sec) . 9:04:19 Inflation number: 4 The EMERGE OTW 1.5 x 15 balloon ([id number]) was reinflated across the Mid RCA , to 12 EYAL for 0:18 (min:sec) . 9:04:37 Versed 2 mg I.V. was administered by Annmarie Spaulding RN; for sedation; Verbal order read back and verified. 9:04:43 Fentanyl 50 mcg I.V. was administered by Annmarie Spaulding RN; for sedation; Verbal order read back and verified. 9:04:47 Inflation number: 5 The EMERGE OTW 1.5 x 15 balloon ([id number]) was reinflated across the Mid RCA , to 12 EYAL for 0:16 (min:sec) . 9:05:16 Inflation number: 6 The EMERGE OTW 1.5 x 15 balloon ([id number]) was reinflated across the Mid RCA , to 14 EYAL for 0:18 (min:sec) . 9:08:59 Wire removed. 9:09:21 CHOICE PT Extra Support J 300cm guide wire ([id number]) opened to sterile field. 9:09:36 CHOICE PT 300 wire advanced. 9:11:53 Nitroglycerin IC/IA 150 mcg I.C. was administered by Seth Alfredo MD; for vasodilation; Verbal order read back and verified. 9:12:54 Balloon removed over the wire. 9:15:30 Heparin Bolus 2000 units I.V. was administered by Annmarie Spaulding RN; for anticoagulation; verified with dr roque Verbal order read back and verified. 9:17:06 Place stent Inflation Number: 7 A VERONICA OTW 2.5 x 22 stent ([id number]) was prepped and advanced across the Mid RCA . The stent was deployed at 14 EYAL for 0:24 (min:sec) . 9:18:15 Stent catheter was removed intact over wire. 9:21:33 Place stent Inflation Number: 8 A VERONICA OTW 3.0 x 22 stent ([id number]) was prepped and advanced across the Mid RCA . The stent was deployed at 14 EYAL for 0:23 (min:sec) . 9:22:14 Stent catheter was removed intact over wire. 9::38 Versed 1 mg I.V. was administered by Annmarie Spaulding RN; for sedation; Verbal order read back and verified. 9::48 Fentanyl 50 mcg I.V. was administered by Annmarie Spaulding RN; for sedation; Verbal order read back and verified. 9:25:42 Place stent Inflation Number: 9 A VERONICA RX 3.0 x 18 stent ([id number]) was prepped and advanced across the Mid RCA . The stent was deployed at 14 EYAL for 0:20 (min:sec) . 9:26:27 Inflation number: 10 The stent balloon was then re-inflated across the Mid RCA to 6 EYAL for 0:04 (min:sec) . 9::55 Inflation number: 11 The stent balloon was then re-inflated across the Mid RCA to 6 EYAL for 0:13 (min:sec) . 9:27:18 Stent catheter was removed intact over wire. 9::41 Wire removed. 9::45 Guide catheter removed. 9:27:47 EXOSEAL 6Fr (EX600) opened to sterile field. 9:28:01 ACC Post-intervention YESICA Flow is 3. 9:28:13 Post PCI Site: [place] RCA has 0% stenosis. 9:28:41 Sheath removed intact; hemostasis achieved with Exoseal to the Right Femoral artery. 9:28:45 Procedure ended.(Physican Out) 9:29:03 Contrast amount:Isovue 300 181ml. 9:29:06 Maximum allowable dose exceeded? Yes. 9:29:08 Sharps counted by scrub and verified by R.N. 9:29:19 Fluoroscopy time 15.90 minutes. 9:29:29 Fluoroscopy dose: 1395 mGy 9:29:29 Flurop Dose total: 1395 9:29:55 Dose Area Product 17941 mGy/cm. 9:30:00 Insertion/operative site no bleeding no hematoma. 9:30:05 Post-op/insertion site Right Femoral artery dressed using a 4 x 4 and Tegaderm. 9:30:10 Post right femoral artery:stable 9:30:16 Post-procedure physical assessment completed. ASA score P 2 - A patient with mild systemic disease as per Seth Alfredo MD. 9:30:20 Post procedure rhythm: unchanged. 9:30:24 Estimated blood loss: 10 ml 9:30:26 Post procedure instruction explained to patient.Patient verbalizes understanding. 9:30:27 Patient needs reinforcement of post procedure teaching. 9:32:32 Procedure type changed to Cath procedure, Diagnostic procedure, LHC, [facility] w/Coronaries, Sedation Charges, Moderate Sedation up to 30 minutes, PCI procedure, Coronary Stent, Coronary Stent Initial, Hemochron ACT Test 9:32:34 Procedure and supply charges have been captured, reviewed, submitted and are correct. 9:34:24 ACT drawn and resulted at 310 seconds. (normal therapeutic range 180-240 seconds). 9:34:39 Plavix 600 mg P.O. was administered by Annmarie Spaulding RN; for antiplatelet therapy; Verbal order read back and verified. 9:34:44 Procedure Complication : No complications 9:34:48 Vital chart was stopped 9:34:50 [facility] Findings: MVD- PCI performed (see procedure note) 9:34:54 Operative report dictated upon procedure completion. 9:34:55 See physician's report for complete and final results. 9:34:57 Report given to Pre/Post Procedure Room. 9:35:01 Patient transfered to Pre/Post Procedure Room with Stretcher. 9:36:26 Procedure ended. 9:36:26 Full Disclosure recording stopped 9:36:35 ACC-PCI Only Patient was given prescriptions, or instructed by Seth Alfredo MD to start/continue the following medications upon discharge: Plavix 9:36:37 End room use (Document Last) Intervention Summary Intervention Notes Time ActionType Lesion and Equipment Used Action# Pressure Duration Attributes 8:56:07 Inflate Mid RCA EMERGE OTW 2.5 1 10 00:17 balloon x 15 balloon ([id number]) 8:56:29 Reinflate Mid RCA EMERGE OTW 2.5 2 12 00:14 balloon x 15 balloon ([id number]) 9:03:47 Inflate Mid RCA EMERGE OTW 1.5 3 12 00:15 balloon x 15 balloon ([id number]) 9:04:19 Reinflate Mid RCA EMERGE OTW 1.5 4 12 00:18 balloon x 15 balloon ([id number]) 9:04:47 Reinflate Mid RCA EMERGE OTW 1.5 5 12 00:16 balloon x 15 balloon ([id number]) 9:05:16 Reinflate Mid RCA EMERGE OTW 1.5 6 14 00:18 balloon x 15 balloon ([id number]) 9:17:06 Place stent Mid RCA VERONICA OTW 2.5 x 7 14 00:24 22 stent ([id number]) 9:21:33 Place stent Mid RCA VERONICA OTW 3.0 x 8 14 00:23 22 stent ([id number]) 9:25:42 Place stent Mid RCA VERONICA RX 3.0 x 9 14 00:20 18 stent ([id number]) 9:26:27 Reinflate Mid RCA VERONICA RX 3.0 x 10 6 00:04 stent 18 stent balloon ([id number]) 9:26:55 Reinflate Mid RCA VERONICA RX 3.0 x 11 6 00:13 stent 18 stent balloon ([id number]) Device Usage Item Name Manufacture Quantity Catalog Number Hospital Part Current Minimal Lot# / Charge Number Stock Stock Serial# Code ACIST Syringe Acist 1 71383 340971 399861 879516 20 (33170) Medical Systems Inc Bag Decanter Microtek 1 2001S 446017 84625 690682 5 (2001S) Medical Inc. Medline Cath Medline 1 [id number] 613293 95813 688435 5 Pack ([id number]) ACIST Hand Acist 1 74952 273462 682155 642874 5 Control Medical (24400) Systems Inc ACIST Manifold Acist 1 08693 371184 787241 202499 5 (01362) Medical Systems Inc DIAGNOSTIC Cardinal 1 EU5530 478926 10454 227860 30 Multipack 5Fr Health catheter set (BF9240) Tegaderm 4 x 4 3M 1 1626W 717942 958777 065501 5 (1626W) SHEATH 5FR Terumo 1 RCY056 918878 583117 575415 5 [place] (BSA222) EMERALD Guide Cardinal 1 502-455 811858 838396 435390 5 Wire (502-455) Health MULTIPACK JL Cardinal 1 739987 5 4.0 5Fr Health catheter MULTIPACK 3DRC Cardinal 1 719149 5 5Fr catheter Health MULTIPACK Cardinal 1 641039 5 Pigtail 5 Fr Health catheter SHEATH 6FR Terumo 1 FFG808 378155 955062 840846 40 [place] (EBE634) INFLATOR Merit Merit 1 VL5025 885017 791208 506438 15 [facility] Medical (RT0592) WHISPER 300cm Thayer 1 [id number] 940346 312765 827498 5 guide wire Vascular ([id number]) GUIDE 6FR HS I Medtronic 1 [id number] 216149 56691 310210 1 SH catheter ([id number]) EMERGE OTW 2.5 [place] 1 [id number] 424214 855563 619691 5 13253948 x 15 balloon Scientific ([id number]) EMERGE OTW 1.5 [place] 1 [id number] 504450 909717 214226 5 24697603 x 15 balloon Scientific ([id number]) CHOICE PT [place] 1 [id number] 272620 243258 028590 5 Extra Support Scientific J 300cm guide wire ([id number]) VERONICA OTW 2.5 x Medtronic 1 [id number] 259265 92037 652618 5 [id number] 22 stent ([id number]) VERONICA OTW 3.0 x Medtronic 1 [id number] 812069 0748439 043366 5 [id number] 22 stent ([id number]) VERONICA RX 3.0 x Medtronic 1 [id number] 134769 7413162 959356 5 [id number] 18 stent ([id number]) EXOSEAL 6Fr Cardinal 1 EX600 273749 714434 874463 10 (EX600) Health Signature Audit [place]earing Stage Time Signature Unsigned Intra-Procedure 07/05/2019 Bel Rivera 9:37:13 AM RT(R) (CV) Intra-Procedure 07/05/2019 Annmarie Spaulding RN 9:37:53 AM Intra-Procedure 07/05/2019 Seth Alfredo MD 9:38:24 AM [facility] [address] [place] [address]
[2019-07-05] MEDS ORDERED: ZANAFLEX4 MG PO (06:54)
[2019-07-05 07:21] VITALS: BP 126/64; Ht 172.7 cm; Wt 69.1 kg
[2019-07-05 07:38] LABS: BASOPHILS 0.6 % (0-2); EOSINOPHILS 2.1 % (0-7); HEMATOCRIT 43.9 % (36.0-48.0); HEMOGLOBIN 14.6 g/dL (12-16); IMMATURE GRANULOCYTES 0.2 % (0-5); LYMPHOCYTES 35.7 % (15-50); MCH 31.4 pg (26.0-34.0); MCHC 33.3 g/dL (31.0-37.0); MCV 94.4 fL (80.0-100.0); MONOCYTES 9.6 % (2-11); NEUTROPHILS 51.8 % (40-80); PLATELET COUNT 168 10x3/uL (130-400); RBC 4.65 10x6/uL (4.00-5.40); RDW 12.7 % (11.5-14.5); WBC 5.2 10x3/uL (4.8-10.8)
[2019-07-05 07:48] LABS: ANION GAP 11.4 mmol/L (8-16); CALCIUM 8.7 mg/dL (8.5-10.1); CARBON DIOXIDE 26.3 mmol/L (21.0-32.0); CHOL - HDL RATIO 6.4 ratio (2.3-4.1); CREATININE - SERUM 1.1 mg/dL (0.6-1.3); LDL-HDL RATIO 3.7 ratio (1.5-3.5); POTASSIUM - SERUM 3.7 mmol/L (3.5-5.1)
[2019-07-05] MEDS ORDERED: BAYER CHEWABLE81 MG PO (09:50)
[2019-07-05] MEDS ORDERED: PLAVIX75 MG PO (09:50)
--- NOTE | 2019-07-05 09:52 | NUR ---
PT REC'D TO ROOM 3 VIA STRETCHER FROM BAREBACK RIDER. MONITORS ESTAB. PT DROWSY, WILL FOLLOW COMMANDS. SEE QA LEAD.
--- NOTE | 2019-07-05 10:05 | NUR ---
R GROIN SITE SOFT, NO S/S BLEEDING OR HEMATOMA. PULSES PALP. VSS. PT DENIES NEEDS. ALARMS ON AND C/L IN REACH.
--- NOTE | 2019-07-05 10:35 | NUR ---
R GROIN SITE SOFT, NO S/S BLEEDING OR HEMATOMA. PT AWAKENS EASILY, DENIES PAIN OR NEEDS. ALARMS ON AND C/L IN REACH.
--- NOTE | 2019-07-05 10:50 | NUR ---
PT RESTING QUIETLY, R GROIN SITE SOFT, NO S/S BLEEDING OR HEMATOMA. PULSES PALP WITH BRISK CAP REFILL. VSS. ALARMS ON AND C/L IN REACH.
--- NOTE | 2019-07-05 11:15 | NUR ---
SPOKE WITH OVER PHONE - UPDATE GIVEN AND PLAN FOR PT D/C AT 1345. PT AWAKENS EASILY, VSS. R GROIN SITE SOFT, C/D/I.
--- NOTE | 2019-07-05 11:44 | NUR ---
PT RESTING QUIETLY, VSS. R GROIN SITE SOFT, C/D/I, PALP PULSES NOTED. VSS. ALARMS ON AND C/L IN REACH.
--- NOTE | 2019-07-05 12:04 | NUR ---
DR. FULLER IN TO TALK TO PT. R GROIN SITE SOFT, C/D/I, PULSES PALP.
--- NOTE | 2019-07-05 12:52 | NUR ---
PT ON BEDPAN, NO VOID AT THIS TIME. R GROIN SITE SOFT, C/D/I. HOB ELEVATED AND PT GIVEN COFFEE PER REQUEST. C/L IN REACH.
--- NOTE | 2019-07-05 12:55 | NUR ---
SANDWICH TRAY PROVIDED.
--- NOTE | 2019-07-05 13:30 | NUR ---
R GROIN SITE SOFT, C/D/I. PT UP TO BR. HAD NAUSEA AND SMALL AMT OF EMESIS. ZOFRAN GIVEN PER MD ORDER. PT REPORTED RELIEF WITH IN MINUTES. VSS. CM - NSR WITH NO ECTOPY. WILL CONT TO MONITOR.
--- NOTE | 2019-07-05 13:50 | NUR ---
PT DENIES N/V OR PAIN. R GROIN SITE SOFT, C/D/I. ALL DISCHARGE INSTRUCTIONS REVIEWED WITH PT. PT UP TO GET DRESSED. NO S/S DISTRESS.
--- NOTE | 2019-07-05 14:00 | NUR ---
PT D/C'D VIA WC TO PRIVATE VEHICLE WITH - VERBALIZES UNDERSTANDING OF D/C INSTRUCTIONS INCLUDING RESTRICTIONS, MEDICATIONS AND PLAN FOR PROCEDURE NEXT WEEK.
--- NOTE | 2019-07-05 15:00 | OP ---
PATIENT NAME: DERRICK NOVOA MEDICAL RECORD: [id number] LOCATION:D[facility] ADMISSION DATE: SURGEON: UMBERTO FULLER MD DATE OF OPERATION: 07/05/2019 PROCEDURE: Left heart catheterization, selective coronary angiography, right femoral artery approach. CATHETERS: A 5-Russian sheath, 5/4 left and right Justice, 5/4 pig. The procedure was well tolerated. The patient returned to the connelly, sheath removed. ExoSeal device placed. FINDINGS: Left ventriculography in 30-degree IRWIN view. Normal wall motion and normal systolic function. CORONARY ANATOMY: LEFT MAIN: Left main is free of disease. LAD: LAD has a diffuse 80% stenosis proximally. CIRCUMFLEX: Free of disease. RIGHT CORONARY ARTERY: Totally occluded right RV branch with what appears to be a large thrombus burden through this area. It is filling with a faint left to right collaterals. PLAN: Intervention to the right momentarily LAD at a later date. DESCRIPTION OF PROCEDURE: A 5-Russian sheath was exchanged for a 6-Russian sheath. A hockey stick guiding catheter provided good guide catheter support followed by 300 cm Whisper wire was placed across the totally occluded right down this portion of vessel. We initially used a 2.5 I[place]quois balloon up and down the vessel and we were able to store probably YESICA 2 flow. Then, using the balloon as we exchange catheter, we exchanged for a PT export wire and inflated this distally. Stents were placed in following fashion, distally a 2.5 x 22 mm, proximally 3.0 x 22, and finally 3.0 x 18, all Jose drug-eluting stent up to 14 atmospheres. Final angiography shows excellent resolution of 100% stenosis with good plumping of the distal vasculature. YESICA flow improved from 0 to 3. Sheath closed with ExoSeal device. Plavix was loaded in the lab. Heparin and Integrilin were used during the case. Intervention to LAD at a later date. TRANSINT:[id number] Voice Confirmation ID: [id number] DOCUMENT ID: [id number] UMBERTO FULLER MD at 1500 CC: [id number] DICTATION DATE: 07/05/19 0950 FLAT SORTING MACHINE CLERK: 07/05/19 1206 DEP CLI 07/05/19 [facility] [address] [place] [address]
== END 2019-07-05 14:00 | disposition home or self-care (01) ==
LOC: D.CATH 06:34
PROVIDERS: ATTEND Internal Medicine Interventional Cardiology
DX: I25.119 Atherosclerotic heart disease of native coronary artery with unspecified angina pectoris (principal); I10 Essential (primary) hypertension; R42 Dizziness and giddiness; E11.9 Type 2 diabetes mellitus without complications; R09.89 Other specified symptoms and signs involving the circulatory and respiratory systems; R01.1 Cardiac murmur, unspecified; E78.5 Hyperlipidemia, unspecified; Z72.0 Tobacco use
CPT/HCPCS: 93458; C9600

== ENCOUNTER 2019-07-14 06:32 | Outpatient (CLI) | payer OTHER ==
[~2019-07-14] VITALS: Ht 172.7 cm; Wt 67.5 kg
--- NOTE | ~2019-07-14 | HEMODYNAMI ---
PATIENT:DERRICK NOVOA MEDICAL RECORD: [id number] : 64 LOCATION:D.CAT ADMISSION DATE: 07/14/19 Generatedon:07/14/20199:25 Patient name: DERRICK NOVOA Patient #: [id number] SSN: [id number] : 1960 Date of study: 07/14/2019 Page: Of Hemodynamic Procedure Report Patient Data Patient Demographics Procedure consent was obtained First Name: DERRICK Gender: Female Last Name: SOMMER : 1960 [facility] Initial: JAMEY Age: 58 year(s) Patient #: [id number] Race: SSN: [id number] Additional ID: [id number] Contact details Address: [address] [place] [address] State: [place] City: [place] Zip code: [facility] Past Medical History Allergies Allergen Reaction Date Comments Reported Codeine 11/12/2016 Other 11/12/2016 HYDROCODONE, STEROIDS, LEVAQUIN allergy Other 07/05/2019 CODEINE/HYDROCODONE/LEVAQUIN/STEROIDS allergy Other 07/14/2019 CODEINE, HYDROCODONE, LEVAQUIN allergy Admission Admission Data Admission Date: 07/14/2019 Admission Time: 6:32 Arrival Date: 07/14/2019 Arrival Time: 0:00 Height (in.): 172 BSA: 2.53 (m2) Height (cm.): 436.88 BMI: 1.62 (kg/m2) Weight (lbs.): 68 Weight (kg.): 30.84 Lab Results Lab Result Date: 07/14/2019 Lab Result Time: 0:00 Biochemistry Name Units Result Min Max BUN mg/dl 9 --(*---)-- 7 18 Creatinine mg/dl 1 --(--*-)-- 0.6 1.3 eGFR ml/min 61.85863 *-(----)-- 90 120 NONAFRICAN CBC Name Units Result Min Max Hematocrit % 36 *-(----)-- 42 54 Hemoglobin g/dl 12 *-(----)-- 13.5 17.5 Procedure Procedure Types Cath Procedure Diagnostic Procedure Sedation Charges Moderate Sedation up to 15 minutes PCI Procedure Coronary Stent Coronary Stent Initial Hemochron ACT Test Procedure Description Procedure Date Procedure Date: 07/14/2019 Procedure Start Time: 9:03 Procedure End Time: 9:21 Procedure Staff Name Function Seth Alfredo MD Performing Physician Destiny Stevenson RN Nurse Scarlett Kidd RT Scrub Bel Rivera RT Monitor Procedure Data Cath Procedure Fluoroscopy Diagnostic fluoroscopy Total fluoroscopy Time: 0.9 time: 0.9 min min Diagnostic fluoroscopy Total fluoroscopy dose: 94 dose: 94 mGy mGy Contrast Material Contrast Material Type Amount (ml) Isovue 300 34 Entry Location Entry Primary Successful Side Size Upsize Upsize Entry Closure Succes sful Closure Location (Fr) 1 (Fr) 2 (Fr) Remarks Device Remarks Femoral Left 6 Fr Exoseal artery Short Estimated blood loss: 10 ml Procedure Complications No complications Procedure Medications Medication Administration Route Dosage 0.9% NaCl I.V. 100 ml/hr Oxygen etCO2 Nasal cannula 2 l/min Lidocaine 2% added to field 20 Heparin Flush Bag added to field 2 bags (1000units/500ml NS) Phenergan I.M. 25 mg Zofran I.V. 4 mg Versed I.V. 2 mg Fentanyl I.V. 50 mcg Versed I.V. 2 mg Fentanyl I.V. 50 mcg Hemodynamics Rest BSA: 2.53 (m2) HGB: 12 (g/dl) O2 Consumption: Estimated: 226.19 (ml/min) O2 Cons umption indexed: Estimated:89.4 (ml/min/m) Heart Rate: 53 (bpm) Snapshots Pre Cath Intra NCS Post Cath Vital Signs Time Heart Resp SPO2 etCO2 NIBP (mmHg) Rhythm Pain Sedation Rate (ipm) (%) (mmHg) Status Level (bpm) 8:50:22 55 19 97 31 152/84(101) SB 0 (11) 10(A) , No pain 8:55:21 50 15 98 32.9 Measuring SB 0 (11) 10(A) , No pain 8:55:29 48 13 98 34.4 129/77(106) SB 0 (11) 10(A) , No pain 8:59:47 53 14 96 31.4 132/68(89) SB 0 (11) 10(A) , No pain 9:03:55 51 13 98 12.7 124/68(97) SB 0 (11) 10(A) , No pain 9:08:11 50 13 98 31 119/67(95) SB 0 (11) 10(A) , No pain 9:12:25 50 11 98 21.6 105/61(79) SB 0 (11) 10(A) , No pain 9:17:24 49 11 98 26.9 Measuring SB 0 (11) 10(A) , No pain 9:17:36 53 12 99 20.2 116/71(82) SB 0 (11) 10(A) , No pain Medications Time Medication Route Dose Verified Delivered Reason Notes Effe ctiveness by by 8:51:11 0.9% NaCl I.V. 100 Seth Destiny used for ml/hr Blossom Graham procedure MD KHAN 8:51:18 Oxygen etCO2 2 Seth Destiny used for Nasal l/min Blossom Graham procedure cannula MD KHAN 8:51:23 Lidocaine 2% added 20ml Seth Ann for local to vial [facility] anesthetic field MD BAEZ 8:51:27 Heparin Flush added 2 Seth Seth used for Bag to bags [facility] procedure (1000units/500ml field MD BAEZ NS) 8:51:41 Phenergan I.M. 25 mg Seth Destiny for nausea [facility] Stevenson MD RN 8:51:48 Zofran I.V. 4 mg Seth Destiny for nausea [facility] MD, RN 9:01:27 Versed I.V. 2 mg Seth Destiny for [facility] Stevenson sedation MD KHAN 9:01:31 Fentanyl I.V. 50 Seth Destiny for mcg [facility] Stevenson sedation MD KHAN 9:08:14 Versed I.V. 2 mg Seth Destiny for [facility] sedation MD KHAN 9:08:21 Fentanyl I.V. 50 Seth Dest[address] for mcg [facility] Stevenson sedation MD KHANdirector of bands Log Time Note 8:10:26 Informed consent obtained and on chart 8:13:25 Procedure Status PCI. 8:13:26 Time tracking: Regular hours (M-F 7:00 - 5:00) 8:13:29 Plan of Care:Hemodynamics will remain stable., Cardiac rhythm will remain stable., Comfort level will be maintained., Respiratory function will remain adequate., Patient/ family verbilizes understanding of procedure., Procedure tolerated without complication., Recovers from procedure without complications.. 8:20:13 Bel TAYLOR(R) (CV) sent for patient. Start room use. 8:26:24 H&P Date Dictated: 07/14/2019 H&P Addendum completed by physician on day of procedure. (MUST COMPLETE FOR ALL OUTPATIENTS), New H&P dictated by physician.. 8:27:42 Patient allergic to Other allergyCODEINE, HYDROCODONE, LEVAQUIN 8:30:01 Lab Result : BUN 9 mg/dl 8:30:01 Lab Result : Creatinine 1 mg/dl 8:30:01 Lab Result : eGFR NONAFRICAN 61.71525 ml/min 8:30:01 Lab Result : Hematocrit 36 % 8:30:01 Lab Result : Hemoglobin 12 g/dl 8:39:27 Stress Test: no; abnormal BRING BACK PCI 8:40:06 Patient Weight : 68 lbs 8:40:11 Patient Height : 172 inches 8:40:18 Arrival Date: 07/14/2019 12:00:00 AM 8:42:19 Patient received from Pre/Post Procedure Room to CCL 1 Alert and oriented. Tansferred to table in Supine position. 8:42:22 Warm blankets applied, and erika hugger turned on for patient comfort. 8:42:22 Correct patient and procedure confirmed by team. 8:42:23 ECG and BP/O2 sat monitors applied to patient. 8:49:07 Vital chart was started 8:49:09 Baseline sample Acquired. 8:49:13 Rhythm: sinus bradycardia 8:49:14 Full Disclosure recording started 8:49:14 Pre-procedure instructions explained to patient. 8:49:15 Pre-op teaching completed and patient verbalized understanding. 8:49:16 Family AVAILABLE WITH PHONE CALL 8:49:33 Patient NPO since Midnight. 8:49:34 Is patient on blood thinner?Yes 8:49:36 ACC The patient was administered the following blood thiners within the last 24 hours: ACCPlavix 8:49:40 Patient diabetic? No. 8:49:42 Patient not . Patient is over age 55. 8:49:45 Previous problem with sedation/anesthesia? No ? 8:49:46 Snore? Yes 8:49:47 Sleep apnea? No 8:49:49 Deviated septum? No 8:49:51 Opens mouth fully? Yes 8:49:51 Sticks out tongue? Yes 8:49:53 Airway obstruction? No ? 8:49:55 Dentures? No ? 8:50:01 Pre procedure: left dorsailis pedis pulse 1+ Palpable, but thready & weak; easily obliterated 8:51:11 0.9% NaCl 100 ml/hr I.V. was administered by Destiny Stevenson RN; used for procedure; Verbal order read back and verified. 8:51:18 Oxygen 2 l/min etCO2 Nasal cannula was administered by Destiny Stevenson RN; used for procedure; Verbal order read back and verified. 8:51:23 Lidocaine 2% 20ml vial added to field was administered by Seth Alfredo MD; for local anesthetic; Verbal order read back and verified. 8:51:27 Heparin Flush Bag (1000units/500ml NS) 2 bags added to field was administered by Seth Alfredo MD; used for procedure; Verbal order read back and verified. 8:51:41 Phenergan 25 mg I.M. was administered by Destiny Stevenson RN; for nausea; Verbal order read back and verified. 8:51:48 Zofran 4 mg I.V. was administered by Destiny Stevenson RN; for nausea; Verbal order read back and verified. 8:53:56 IV patent on arrival in left hand with 0.9% NaCl at [facility]. 8:53:58 Lab results completed and on chart. 8:54:05 Left groin area was prepped with chlora-prep and draped in sterile fashion 8:54:06 Alarms reviewed by R. N. 8:54:06 Sharps counted by scrub and verified by R.N. 8:54:10 Use device set CATH PACK 8:54:11 ACIST Syringe (27548) opened to sterile field. 8:54:11 ACIST Hand Control (19261) opened to sterile field. 8:54:11 ACIST Manifold (29958) opened to sterile field. 8:54:12 Medline Cath Pack ([id number]) opened to sterile field. 8:54:12 Bag Decanter (2002S) opened to sterile field. 8:54:12 EMERALD Guide Wire (502-322) opened to sterile field. 8:55:38 SHEATH 6FR [place] (YUX477) opened to sterile field. 8:55:38 INFLATOR Merit BascieraCompak (KP5730) opened to sterile field. 8:55:38 WHISPER 300cm guide wire ([id number]) opened to sterile field. 8:55:49 GUIDE 6FR XBLAD 3.5 catheter ([id number]) opened to sterile field. 9:00:52 --------ALL STOP TIME OUT------ 9:00:53 Final Timeout: patient, procedure, and site verified with staff and physician. All members of the team are in agreement. 9:00:55 Left groin site verified by team. 9:00:58 Fire Safety Assessment: A--An alcohol-based skin anteseptic being used preoperatively., C--Open oxygen or nitrous oxide is being used., D--An ESU, laser, or fiber-optic light is being used. 9:01:01 Physical assessment completed. ASA score P 2 - A patient with mild systemic disease as per Seth Alfredo MD. 9:01:04 2) 60-89 Mildly reduced kidney function, and other findings (as for stage 1) point to kidney disease. 9:01:07 Maximum allowable contrast dose (3.7 X eGFR X 0.75)169 ml. 9:01:10 Sedation plan: IV Moderate Sedation Medication:Versed, Fentanyl 9:01:27 Versed 2 mg I.V. was administered by Destiny Stevenson RN; for sedation; Verbal order read back and verified. 9:01:31 Fentanyl 50 mcg I.V. was administered by Destiny Stevenson RN; for sedation; Verbal order read back and verified. 9:03:17 Procedure started. 9:03:24 Local anesthetic to left femerol artery with Lidocaine 2% by Seth Alfredo MD.INITIAL ACCESS ONLY 9:04:24 A 6 Fr Short sheath was inserted into the Left Femoral artery 9:06:53 6 Fr XBLAD 3.5 guide catheter was inserted over the wire 9:07:42 Pre PCI Site: [place] mLAD has 80% stenosis. 9:08:14 Versed 2 mg I.V. was administered by Destiny Stevenson RN; for sedation; Verbal order read back and verified. 9:08:21 Fentanyl 50 mcg I.V. was administered by Destiny Stevenson RN; for sedation; Verbal order read back and verified. 9:09:15 WHISPER 300 wire advanced. 9:11:47 Wire advanced across lesion. 9:13:24 Place stent Inflation Number: 1 A VERONICA RX 3.0 x 15 stent ([id number]) was prepped and advanced across the Prox LAD . The stent was deployed at 14 EYAL for 0:00 (min:sec) . 9:13:50 Stent catheter was removed intact over wire. 9:13:58 Wire removed. 9:13:59 Guide catheter removed. 9:14:10 EXOSEAL 6Fr (EX600) opened to sterile field. 9:16:10 Sheath removed intact; hemostasis achieved with Exoseal to the Left Femoral artery. 9:16:11 Procedure ended.(Physican Out) 9:17:33 Fluoroscopy time 00.90 minutes. 9:17:36 ACT drawn and resulted at 199 seconds. (normal therapeutic range 180-240 seconds). 9:17:36 Flurop Dose total: 94 9:17:36 Fluoroscopy dose: 94 mGy 9:17:40 Dose Area Product 4566 mGy/cm. 9:17:44 Contrast amount:Isovue 300 34ml. 9:17:46 Maximum allowable dose exceeded? No. 9:17:47 Sharps counted by scrub and verified by R.N. 9:18:07 Post-op/insertion site Left Femoral artery dressed using a 4 x 4 and Tegaderm. 9:18:13 Post right femoral artery:stable, soft, clean and dry 9:18:18 Post-procedure physical assessment completed. ASA score P 2 - A patient with mild systemic disease as per Seth Alfredo MD. 9:18:22 Post procedure rhythm: sinus bradycardia 9:18:24 Estimated blood loss: 10 ml 9:18:25 Post procedure instruction explained to patient.Patient verbalizes understanding. 9:18:26 Patient needs reinforcement of post procedure teaching. 9:20:22 Procedure type changed to Cath procedure, Diagnostic procedure, Sedation Charges, Moderate Sedation up to 15 minutes, PCI procedure, Coronary Stent, Coronary Stent Initial, Hemochron ACT Test 9:20:48 Procedure and supply charges have been captured, reviewed, submitted and are correct. 9:20:50 Procedure Complication : No complications 9:20:51 Vital chart was stopped 9:20:53 [facility] Findings: MVD- PCI performed (see procedure note) 9:20:55 Operative report dictated upon procedure completion. 9:20:55 See physician's report for complete and final results. 9:20:57 Report given to Pre/Post Procedure Room. 9:20:59 Patient transfered to Pre/Post Procedure Room with Bed. 9:21:00 Procedure ended. 9:21:00 Full Disclosure recording stopped 9:21:08 ACC-PCI Only Patient was given prescriptions, or instructed by Seth Alfredo MD to start/continue the following medications upon discharge: Plavix 9:21:09 End room use (Document Last) 9:24:05 End room use (Document Last) 9:24:30 End room use (Document Last) Intervention Summary Intervention Notes Time ActionType Lesion and Equipment Used Action# Pressure Duration Attributes 9:13:[address] stent Prox LAD VERONICA RX 3.0 x 1 14 00:00 15 stent ([id number]) Device Usage Item Name Manufacture Quantity Catalog Hospital Part [facility] Lot# / Number Charge Number Stock Stock Serial# Code ACIST Syringe Acist 1 07490 733870 743952 [id number] 20 (94877) Medical Systems Inc ACIST Hand Acist 1 39870 108143 274604 070210 5 Control Medical (84735) Systems Inc ACIST Manifold Acist 1 70863 252841 705617 922634 5 (28138) Medical Systems Inc Medline Cath Medline 1 [id number] 530237 53367 809328 5 Pack ([id number]) Bag Decanter Microtek 1 2001S 884783 28142 088856 5 (2001S) Medical Inc. EMERALD Guide Cardinal 1 502-455 307794 730888 935867 5 Wire (502-455) Health SHEATH 6FR Terumo 1 FCT297 922082 978662 107747 40 [place] (MUZ143) INFLATOR Merit Merit 1 QW1230 312566 370246 228846 15 Day [facility] Medical (YQ4406) WHISPER 300cm [place] 1 [id number] 035958 047104 250635 5 guide wire Vascular ([id number]) GUIDE 6FR Cardinal 1 [id number] 188246 407847 906371 10 XBLAD 3.5 Health catheter ([id number]) VERONICA RX 3.0 x Medtronic 1 [id number] 266095 4574762 515822 5 [id number] 15 stent ([id number]) EXOSEAL 6Fr Cardinal 1 EX600 405336 728558 432493 10 (EX600) Health Signature Audit [place] Stage Time Signature Unsigned Intra-Procedure 07/14/2019 Scarlett Kidd 9:24:05 AM RT(R) Intra-Procedure 07/14/2019 Destiny Stevenson 9:24:30 AM RN Intra-Procedure 07/14/2019 Seth Elizabeth 9:25:02 AM Anthony BAEZ [address] [place] [address]
[~2019-07-14 06:32] MED LIST changes: +BAYER CHEWABLE81 MG PO; +PLAVIX75 MG PO
[2019-07-14 07:16] VITALS: BP 128/62; Ht 172.7 cm; Wt 67.5 kg
[2019-07-14 07:26] LABS: ANION GAP 13.8 mmol/L (8-16); CALCIUM 8.7 mg/dL (8.5-10.1); CARBON DIOXIDE 24.9 mmol/L (21.0-32.0); POTASSIUM - SERUM 3.7 mmol/L (3.5-5.1)
[2019-07-14 07:32] LABS: BASOPHILS 0.2 % (0-2); EOSINOPHILS 1.9 % (0-7); IMMATURE GRANULOCYTES 0.3 % (0-5); LYMPHOCYTES 30.3 % (15-50); MCH 31.3 pg (26.0-34.0); MCHC 33.3 g/dL (31.0-37.0); MEAN PLATELET VOLUME 10.1 fL (7.4-10.4); MONOCYTES 9.6 % (2-11); NEUTROPHILS 57.7 % (40-80); PLATELET COUNT 236 10x3/uL (130-400); RBC 3.83 10x6/uL (4.00-5.40); RDW 12.7 % (11.5-14.5); WBC 6.3 10x3/uL (4.8-10.8)
--- NOTE | 2019-07-14 09:30 | NUR ---
PT ARRIVED BY STRETCHER. PLACED ON MONITORS. ASSESSMENT COMPLETED. VSS. CALL LIGHT WITHIN REACH.
--- NOTE | 2019-07-14 09:45 | NUR ---
PT RESTING COMFORTABLY. VSS. LEFT GROIN DRESSING C/D/I. NO S/S OF HEMATOMA NOTED. CALL LIGHT WITHIN REACH.
--- NOTE | 2019-07-14 10:15 | NUR ---
PT RESTING COMFORTABLY. VSS. LEFT GROIN DRESSING C/D/I. NO S/S OF HEMATOMA NOTED. CALL LIGHT WITHIN REACH.
--- NOTE | 2019-07-14 10:45 | NUR ---
PT ALERT. GIVEN WATER AND JOÃO CRACKERS. DENIES NAUSEA AT THIS TIME. VSS. LEFT GROIN DRESSING C/D/I. NO S/S OF HEMATOMA NOTED.
--- NOTE | 2019-07-14 11:15 | NUR ---
PT TOLERATING DRINKS. DENIES NAUSEA. LEFT GROIN DRESSING C/D/I. NO S/S OF HEMATOMA NOTED. CALL LIGHT WITHIN REACH.
--- NOTE | 2019-07-14 12:15 | NUR ---
LEFT GROIN DRESSING C/D/I. NO S/S OF HEMATOMA NOTED. CALL LIGHT WITHIN REACH. PT'S HEAD OF BED INC TO 30 DEGREES. TOLERATED WELL. VSS. SET UP WITH SANDWICH TRAY. WILL CONTINUE TO MONITOR.
--- NOTE | 2019-07-14 12:45 | NUR ---
LEFT GROIN DRESSING C/D/I. NO S/S OF HEMATOMA NOTED. PIV D/C'D WITH CATH TIP INTACT. TOLERATED WELL. PT UP AND DRESSED. AMBULATED TO RESTROOM. VOIDED WITHOUT DIFFICULTY. STEADY GAIT NOTED. PT'S CALLED AND WILL HEAD THIS WAY FOR PICKUP.
--- NOTE | 2019-07-14 12:55 | NUR ---
DISCUSSED DISCHARGE INSTRUCTIONS WITH PT. SHE VOICED UNDERSTANDING.
--- NOTE | 2019-07-14 13:15 | NUR ---
PT TAKEN DOWN TO VEHICLE BY WHEELCHAIR. NO S/S OF DISTRESS NOTED. ALL BELONGINGS AND PAPERWORK IN HAND. LEFT GROIN DRESSING C/D/I. NO S/S OF HEMATOMA NOTED.
--- NOTE | 2019-07-15 13:35 | HP ---
PATIENT: DERRICK NOVOA MEDICAL RECORD: [id number] ACCOUNT: [id number] LOCATION:SARAH : 64 ADMISSION DATE: 07/14/19 PCP: BLUE JOSE DO HISTORY AND PHYSICAL EXAMINATION INTERIM HISTORY OF PRESENT ILLNESS: A 58-year-old female with a history of coronary artery disease, status post recent intervention, total occluded right. She had residual disease to LAD, was brought back in for revascularization. She has noticed some improvement in angina, but not a full angina control since her most recent intervention. PAST MEDICAL HISTORY: Includes history of hypertension, hyperlipidemia, coronary artery disease as described above. PHYSICAL EXAMINATION: GENERAL: Pleasant female in no acute distress, appears stated age. HEENT: Normocephalic, atraumatic. NECK: No JVD or bruit. HEART: Regular. LUNGS: Kidd clear. ABDOMEN: Soft, nontender. EXTREMITIES: Pulses 2+. There is no edema. IMPRESSION: Known history of coronary artery disease. PLAN: Intervention of the LAD for complete revascularization. TRANSINT:[id number] Voice Confirmation ID: [id number] DOCUMENT ID: [id number] UMBERTO FULLER MD at 1335 CC: [id number] DICTATION DATE: 07/14/19 0851 FIBER MACHINE TENDER: 07/14/19 0937 [facility] CLI 07/14/[id number] [place] [address]
--- NOTE | 2019-07-15 13:35 | OP ---
PATIENT NAME: EDRRICK NOVOA MEDICAL RECORD: [id number] :64 LOCATION:D.CAT ADMISSION DATE: SURGEON: UMBERTO FULLER MD DATE OF OPERATION: 07/14/2019 PROCEDURE: PTCA stent report LAD. DESCRIPTION OF PROCEDURE: After 6-[place] sheath was placed in the left femoral artery, an XB LAD 3.4 guiding catheter provided excellent guide catheter support followed by 300 cm Whisper wire was placed across the 80% stenosis LAD to the distal portion of vessel. Stent deployed was a 3.0 x 15 mm [place] drug eluting stent up to 14 atmospheres. Final angiography showed excellent resolution from 80% stenosis to no significant residual. YESICA flow was 3 throughout the procedure . Sheath was closed with ExoSeal device. The patient was previously on Plavix. Heparin was used during the case. TRANSINT:[id number] Voice Confirmation ID: [id number] DOCUMENT ID: [id number] UMBERTO FULLER MD at 1335 CC: [id number] DICTATION DATE: 07/14/19918 MEAT STOCK CLERK: 07/14/19 1319 [facility] CLI 07/14/19 [address] [place] [address]
== END 2019-07-14 13:15 | disposition home or self-care (01) ==
LOC: D.CATH 06:32
PROVIDERS: ATTEND Internal Medicine Interventional Cardiology
DX: I25.119 Atherosclerotic heart disease of native coronary artery with unspecified angina pectoris (principal); R42 Dizziness and giddiness; E11.9 Type 2 diabetes mellitus without complications; R09.89 Other specified symptoms and signs involving the circulatory and respiratory systems; R01.1 Cardiac murmur, unspecified; E78.5 Hyperlipidemia, unspecified; Z72.0 Tobacco use

== ENCOUNTER → 2019-12-23 08:06 | Outpatient (CLI) | payer OTHER ==
[2019-07-14 07:16] VITALS: BMI 22.6
== END | disposition home or self-care (01) ==
LOC: D.HCCARDIO 08:06
PROVIDERS: ATTEND Internal Medicine Cardiovascular Disease
DX: I25.10 Atherosclerotic heart disease of native coronary artery without angina pectoris (principal)

== ENCOUNTER 2020-01-03 07:12 | Day surgery (SDC) | payer OTHER ==
[~2020-01-03] VITALS: Ht 172.7 cm; Wt 61.8 kg
--- NOTE | ~2020-01-03 | HEMODYNAMI ---
PATIENT:DERRICK NOVOA MEDICAL RECORD: [id number] : 64 LOCATION:D.CAT ADMISSION DATE: 01/03/20 Generatedon:01/03/20209:01 Patient name: DERRICK NOVOA Patient #: [id number] SSN: [id number] : 1960 Date of study: 01/03/2020 Page: Of Hemodynamic Procedure Report Patient Data Patient Demographics Procedure consent was obtained First Name: DERRICK Gender: Female Last Name: SOMMER : 1960 [facility] Initial: JAMEY Age: 59 year(s) Patient #: [id number] Race: SSN: [id number] Additional ID: [id number] Contact details [address]: [address] [place] [address] State: [place] City: [place] Zip code: [address] Past Medical History Allergies Allergen Reaction Date Comments Reported Codeine 11/12/2016 Other 11/12/2016 HYDROCODONE, STEROIDS, LEVAQUIN allergy Other 07/05/2019 CODEINE/HYDROCODONE/LEVAQUIN/STEROIDS allergy Other 07/14/2019 CODEINE, HYDROCODONE, LEVAQUIN allergy Other 01/03/2020 Codeine, Hydrocodone, Levaquin, allergy Steroids Admission Admission Data Admission Date: 01/03/2020 Admission Time: 7:12 Arrival Date: 01/03/2020 Arrival Time: 0:00 Admit Source: Other Insurance Payor: Private health insurance [facility] #: [id number] Height (in.): 68 BSA: 1.75 (m2) Height (cm.): 172.72 BMI: 21.13 (kg/m2) Weight (lbs.): 139 Weight (kg.): 63.05 Lab Results Lab Result Date: 01/03/2020 Lab Result Time: 0:00 CBC Name Units Result Min Max Hematocrit % 42.2 --(*---)-- 42 54 Hemoglobin g/dl 14.6 --(-*--)-- 13.5 17.5 Procedure Procedure Types Cath Procedure Diagnostic Procedure [facility] w/Coronaries FFR/IVUS FFR Initial Sedation Charges Moderate Sedation up to 15 minutes PCI Procedure Hemochron ACT Test Procedure Description Procedure Date Procedure Date: 01/03/2020 Procedure Start Time: 8:41 Procedure End Time: 8:59 Procedure Staff Name Function Annmarie Spaulding RN Nurse Scarlett Kidd RT Molder Helper Seth Alfredo MD Performing Physician Kary Lowe RT Scrub Melida Ford RT Monitor Procedure Data Cath Procedure Fluoroscopy Diagnostic fluoroscopy Total fluoroscopy Time: 1.7 time: 1.7 min min Diagnostic fluoroscopy Total fluoroscopy dose: 201 dose: 201 mGy mGy Contrast Material Contrast Material Type Amount (ml) Isovue 370 56 Entry Location Entry Primary Successful Side Size Upsize Upsize Entry Closure Succes sful Closure Location (Fr) 1 (Fr) 2 (Fr) Remarks Device Remarks Femoral Right 5 Fr 6 Fr Exoseal artery Short Estimated blood loss: 10 ml Diagnostic catheters Device Type Used For End Catheter Placement MULTIPACK JL 4.0 5Fr Procedure catheter MULTIPACK 3DRC 5Fr Procedure catheter MULTIPACK Pigtail 5 Fr Procedure catheter DIAGNOSTIC 6Fr JL 4.0 Procedure catheter ([id number]) Procedure Complications No complications Procedure Medications Medication Administration Route Dosage Oxygen etCO2 Nasal cannula 2 l/min Zofran I.V. 4 mg Phenergan 25 mg Heparin Flush Bag added to field 2 bags (1000units/500ml NS) Lidocaine 2% added to field 20 0.9% NaCl I.V. 100 ml/hr Versed I.V. 1 mg Fentanyl I.V. 50 mcg Versed I.V. 1 mg Fentanyl I.V. 50 mcg Heparin Bolus I.V. 2000 units Versed I.V. 1 mg Hemodynamics Rest BSA: 1.75 (m2) HGB: 14.6 (g/dl) O2 Consumption: Estimated: 163.93 (ml/min) O2 Co nsumption indexed: Estimated:93.67 (ml/min/m) Heart Rate: 65 (bpm) Pressure Samples Time Site Value (mmHg) Purpose Heart Use Rate(bpm) 8:45 LV 125/12,5 Snapshot 65 Gradients Valve Time Site Site Mean SEP/DFP Peak To Heart Use 1 2 (mmHg) (sec/min) Peak Rate (mmHg) (bpm) Aortic 8:46 LV AO 55 Snapshots Pre Cath Intra NCS Post Cath Vital Signs Time Heart Resp SPO2 etCO2 NIBP (mmHg) Rhythm Pain Sedation Rate (ipm) (%) (mmHg) Status Level (bpm) 8:25:45 60 18 100 0 Measuring NSR 0 (11) 10(A) , No pain 8:25:51 54 18 100 0 142/93(106) NSR 0 (11) 10(A) , No pain 8:30:07 58 10 100 0 150/85(134) NSR 0 (11) 10(A) , No pain 8:34:27 56 17 98 0 136/75(97) NSR 0 (11) 10(A) , No pain 8:38:43 57 16 100 31.2 136/76(98) NSR 0 (11) 10(A) , No pain 8:44:02 61 12 100 33.5 130/74(90) NSR 0 (11) 10(A) , No pain 8:48:20 50 11 98 36.5 120/58(83) NSR 0 (11) 9(A) , No pain 8:52:34 56 11 99 17.1 112/63(83) NSR 0 (11) 9(A) , No pain 8:56:42 52 16 100 38.7 99/70(82) NSR 0 (11) 10(A) , No pain Medications Time Medication Route Dose Verified Delivered Reason Notes Effectiveness by by 8:31:45 Oxygen etCO2 2 Seth Anguiano used for Nasal l/min [facility] Spaulding RN procedure cannula 8:31:53 Zofran I.V. 4 mg Seth Anguiano Per physician [facility] Spaulding RN, MD 8:32:07 Phenergan IM to 25 mg Seth Anguiano Per physician lt GM [facility] Spaulding RN, MD 8:32:19 Heparin Flush added 2 Seth Seth used for Bag to bags [facility] procedure (1000units/500ml field MD BAEZ NS) 8:32:27 Lidocaine 2% added 20ml Seth Ann for local to vial [facility] anesthetic field MD BAEZ 8:32:36 0.9% NaCl I.V. 100 Seth Anguiano Per physician ml/hr [facility] Spaulding RN, MD 8:41:00 Versed I.V. 1 mg Seth Anguiano for sedation [facility] Spaulding RN, MD 8:41:03 Fentanyl I.V. 50 Seth Anguiano for sedation mcg Juni Spaulding RN MD 8:44:13 Versed I.V. 1 mg Seth Anguiano for sedation [facility] Spaulding RN, MD 8:44:18 Fentanyl I.V. 50 Seth Anguiano for sedation mcg [facility] Anthony Spaulding RN, MD 8:47:53 Heparin Bolus I.V. 2000 Seth Anguiano for verifi ed units [facility] Anthony Spaulding RN anticoagulation with dr MD roque for ifr 8:50:40 Versed I.V. 1 mg Seth Anguiano for sedation [facility] Spaulding RN, MD Procedure Log Time Note 8:14:42 Informed consent obtained and on chart 8:14:53 Diagnostic Cath Status : Elective 8:15:40 Admit Source: Other 8:15:42 ACC Patient presents with Stable Angina CCS Anginal Class 2--Slight limitation of ordinary activity. 8:15:45 Procedure Status Elective Heart Cath (OP). 8:15:47 Scarlett Kidd RT(R) sent for patient. Start room use. 8:16:26 Time tracking: Regular hours (M-F 7:00 - 5:00) 8:16:31 Plan of Care:Hemodynamics will remain stable., Cardiac rhythm will remain stable., Comfort level will be maintained., Respiratory function will remain adequate., Patient/ family verbilizes understanding of procedure., Procedure tolerated without complication., Recovers from procedure without complications.. 8:16:40 H&P Date Dictated: 12/14/2019 Within 30 days and on chart.. 8:16:42 Pre-procedure instructions explained to patient. 8:16:42 Pre-op teaching completed and patient verbalized understanding. 8:16:44 Family unavailable. 8:16:46 Patient NPO since Midnight. 8:17:51 Patient allergic to Other allergyCodeine, Hydrocodone, Levaquin, Steroids 8:19:26 Patient received from Pre/Post Procedure Room to CCL 1 Alert and oriented. Tansferred to table in Supine position. 8:19:27 Warm blankets applied, and erika hugger turned on for patient comfort. 8:19:28 Correct patient and procedure confirmed by team. 8:19:28 ECG and BP/O2 sat monitors applied to patient. 8:20:49 Stress Test: yes; abnormal anterior, lateral, inferior 8:20:56 Right groin area was prepped with chlora-prep and draped in sterile fashion 8:20:57 Alarms reviewed by REsequiel NEsequiel 8:20:58 Sharps counted by scrub and verified by R.N. 8:21:02 Pre procedure: right dorsailis pedis pulse 2+ Normal; easily identifiable; not easily obliterated 8:21:07 IV patent on arrival in left antecubital with 0.9% NaCl at [facility]. 8:21:17 Is the patient allergic to Iodine/contrast media? No. 8:21:30 Arrival Date: 01/03/2020 12:00:00 AM 8:21:39 Patient Height : 68 inches 8:21:46 Patient Weight : 139 lbs 8:21:48 Insurance Payor : Private health insurance 8:22:22 Was the patient premedicated? No 8:22:24 Is patient on blood thinner?Yes 8:22:26 ACC The patient was administered the following blood thiners within the last 24 hours: ACCPlavix 8:22:29 Patient diabetic? Yes. 8:22:30 If diabetic: On Metformin? No 8:22:35 Patient not . Patient is over age 55. 8:22:36 ----Pre-sedation anethsthesia assessment.---- 8:22:39 Previous problem with sedation/anesthesia? No ? 8:22:40 Snore? Yes 8:22:41 Sleep apnea? Unknown 8:22:43 Deviated septum? No 8:22:43 Opens mouth fully? Yes 8:22:45 Sticks out tongue? Yes 8:22:47 Airway obstruction? No ? 8:22:49 Dentures? No ? 8:22:55 Patient pain scale 0/10 ?. 8:23:00 Use device set Femoral Dx 8:23:01 ACIST Syringe (18747) opened to sterile field. 8:23:02 Bag Decanter (2002) opened to sterile field. 8:23:02 Medline Cath Pack ([id number]) opened to sterile field. 8:23:04 ACIST Hand Control (32527) opened to sterile field. 8:23:04 ACIST Manifold (48170) opened to sterile field. 8:23:05 DIAGNOSTIC Multipack 5Fr catheter set ([id number]) opened to sterile field. 8:23:06 SHEATH 5FR [place] (HNB980) opened to sterile field. 8:23:07 EMERALD Guide Wire (739-583) opened to sterile field. 8:23:46 Lab Result : Hemoglobin 14.6 g/dl 8:23:46 Lab Result : Hematocrit 42.2 % 8:23:56 Vital chart was started 8:23:57 Full Disclosure recording started 8:24:02 Rhythm: sinus bradycardia 8:24:10 Lab results pending. 8:31:45 Oxygen 2 l/min etCO2 Nasal cannula was administered by Annmarie Spaulding RN; used for procedure; Verbal order read back and verified. 8:31:53 Zofran 4 mg I.V. was administered by Annmarie Spaulding RN; Per physician; Verbal order read back and verified. 8:32:07 Phenergan 25 mg IM to lt GM was administered by Annmarie Spaulding RN; Per physician; Verbal order read back and verified. 8:32:19 Heparin Flush Bag (1000units/500ml NS) 2 bags added to field was administered by Seth Alfredo MD; used for procedure; Verbal order read back and verified. 8:32:27 Lidocaine 2% 20ml vial added to field was administered by Seth Alfredo MD; for local anesthetic; Verbal order read back and verified. 8:32:36 0.9% NaCl 100 ml/hr I.V. was administered by Annmarie Spaulding RN; Per physician; Verbal order read back and verified. 8:40:29 --------ALL STOP TIME OUT------ 8:40:30 Final Timeout: patient, procedure, and site verified with staff and physician. All members of the team are in agreement. 8:40:31 Right groin site verified by team. 8:40:34 Fire Safety Assessment: A--An alcohol-based skin anteseptic being used preoperatively., C--Open oxygen or nitrous oxide is being used., D--An ESU, laser, or fiber-optic light is being used. 8:40:38 Physical assessment completed. ASA score P 2 - A patient with mild systemic disease as per Seth Alfredo MD. 8:40:43 Sedation plan: IV Moderate Sedation Medication:Versed, Fentanyl 8:40:47 Procedure started. 8:41:00 Versed 1 mg I.V. was administered by Annmarie Spaulding RN; for sedation; Verbal order read back and verified. 8:41:00 Local anesthetic to right femoral artery with Lidocaine 2% by Seth Alfredo MD.INITIAL ACCESS ONLY 8:41:03 Fentanyl 50 mcg I.V. was administered by Annmarie Spaulding RN; for sedation; Verbal order read back and verified. 8:41:24 A 5 Fr sheath was inserted into the Right Femoral artery 8:41:37 A MULTIPACK JL 4.0 5Fr catheter was advanced over the wire and used for Procedure. 8:42:29 LCA angiography performed. 8:42:31 Injector settings: Ml/sec: 3, Volume: 6, 8:43:30 Catheter removed. 8:43:36 A MULTIPACK 3DRC 5Fr catheter was advanced over the wire and used for Procedure. 8:44:13 Versed 1 mg I.V. was administered by Annmarie Spaulding RN; for sedation; Verbal order read back and verified. 8:44:18 Fentanyl 50 mcg I.V. was administered by Annmarie Spaulding RN; for sedation; Verbal order read back and verified. 8:44:32 RCA angiography performed. 8:44:35 Injector settings: Ml/sec: 3, Volume: 6, 8:44:37 Catheter removed. 8:44:43 A MULTIPACK Pigtail 5 Fr catheter was advanced over the wire and used for Procedure. 8:44:58 LV gram done using IRWIN 8:45:53 Injector settings: Ml/sec: 5, Volume: 15, 8:45:59 LV hemodynamics recorded. 8:46:07 EF : 55 % 8:46:21 Catheter removed. 8:46:[address] BOWERS PCI 8:46:39 Sheath upsized to a 6 Fr Short. 8:47:00 SHEATH 6FR [place] (INW510) opened to sterile field. 8:47:03 INFLATOR Merit BasixCompak (OT9508) opened to sterile field. 8:47:05 Bowen Verrata Plus pressure wire (47954B) opened to sterile field. 8:47:53 Heparin Bolus 2000 units I.V. was administered by Annmarie Spaulding RN; for anticoagulation; verified with dr roque for ifr Verbal order read back and verified. 8:48:03 A DIAGNOSTIC 6Fr JL 4.0 catheter ([id number]) was advanced over the wire and used for Procedure. 8:48:28 6 Fr JL 4 guide catheter was inserted over the wire 8:49:05 FFR/IFR wire advanced. 8:50:24 Wire advanced across lesion. 8:50:40 Versed 1 mg I.V. was administered by Annmarie Spaulding RN; for sedation; Verbal order read back and verified. 8:51:20 LAD lesion measured at .86 with IFR 8:53:15 Wire removed. 8:53:15 Guide catheter removed. 8:53:22 EXOSEAL 6Fr (EX600) opened to sterile field. 8:53:39 Sheath removed intact; hemostasis achieved with Exoseal to the Right Femoral artery. 8:53:50 Fluoroscopy time 01.70 minutes. 8:53:54 Flurop Dose total: 201 8:53:54 Fluoroscopy dose: 201 mGy 8:53:58 Dose Area Product 9453 mGy/cm. 8:54:01 Contrast amount:Isovue 370 56ml. 8:55:00 Procedure ended.(Physican Out) 8:57:12 Sharps counted by scrub and verified by R.N. 8:57:17 Post-op/insertion site Right Femoral artery dressed using a 4 x 4 and Tegaderm. 8:57:21 Post right femoral artery:stable, soft, clean and dry 8:57:23 Post Procedure Pulses reassessed and unchanged 8:57:26 Post procedure: right dorsailis pedis pulse 2+ Normal; easily identifiable; not easily obliterated. 8:57:32 Post-procedure physical assessment completed. ASA score P 2 - A patient with mild systemic disease as per Seth Alfredo MD. 8:57:40 Post procedure rhythm: unchanged. 8:57:42 Estimated blood loss: 10 ml 8:57:44 Post procedure instruction explained to patient.Patient verbalizes understanding. 8:57:44 Patient needs reinforcement of post procedure teaching. 8:57:51 Procedure Complication : No complications 8:58:02 Procedure type changed to Cath procedure, Diagnostic procedure, LHC, LHC w/Coronaries, FFR/IVUS, FFR Initial, Sedation Charges, Moderate Sedation up to 15 minutes, PCI procedure, Hemochron ACT Test 8:58:43 ACT drawn and resulted at 218 seconds. (normal therapeutic range 180-240 seconds). 8:59:22 Vital chart was stopped 8:59:24 [facility] Findings: MVD- CABG consult 8:59:26 Operative report dictated upon procedure completion. 8:59:27 See physician's report for complete and final results. 8:59:32 Report given to Pre/Post Procedure Room. 8:59:35 Patient transfered to Pre/Post Procedure Room with Stretcher. 8:59:37 Procedure ended. 8:59:37 Full Disclosure recording stopped 8:59:49 ACC-PCI Only Patient was given prescriptions, or instructed by Seth Alferdo MD to start/continue the following medications upon discharge: Plavix 8:59:51 End room use (Document Last) 9:00:17 End room use (Document Last) Device Usage Item Name Manufacture Quantity Catalog Hospital Part Current Minima l Lot# / Number Charge Number Stock Stock Serial# Code ACIST Acist 1 11220 746663 394775 795279 20 Syringe Medical (30365) Systems Inc Bag Microtek 1 532776 16053 330151 5 Decanter Medical Inc. () Medline Medline 1 [id number] 942216 20472 748585 5 Cath Pack ([id number]) ACIST Hand Acist 1 22669 915027 796428 141907 5 Control Medical (04682) Systems Inc ACIST Acist 1 51320 011207 905518 240319 5 Manifold Medical (56535) Systems Inc DIAGNOSTIC Cardinal 1 HJ4668 471674 70556 076926 30 Multipack Health 5Fr catheter set (ET3093) SHEATH 5FR Terumo 1 ZLF993 736601 253409 091504 5 [place] (JXO740) EMERALD Cardinal 1 502-455 928079 024328 087793 5 Guide Wire Health (502-455) MULTIPACK Cardinal 1 324488 5 JL 4.0 5Fr Health catheter MULTIPACK Cardinal 1 033205 5 3DRC 5Fr Health catheter MULTIPACK Cardinal 1 555309 5 Pigtail 5 Health Fr catheter SHEATH 6FR Terumo 1 LAR522 448011 541819 710032 40 [place] (LSJ632) INFLATOR Merit 1 YT8150 538823 649124 824070 15 [facility] BasixCompak (ML3294) DIAGNOSTIC Cardinal 1 [id number] 064014 871955 780902 1 6Fr JL 4.0 Health catheter (870707C) EXOSEAL 6Fr Cardinal 1 EX600 463916 235237 801558 10 (EX600) Health Bowen Bowen 1 66774G 566299 962532401 084775 5 Verrata Plus pressure wire (89073X) Signature Audit Dubberly Stage Time Signature Unsigned Intra-Procedure 01/03/2020 Melida Ford 9:00:17 AM RT(R) Intra-Procedure 01/03/2020 Annmarie Spaulding RN 9:01:26 AM Intra-Procedure 01/03/2020 Seth Elizabeth 9:01:46 AM Anthony BAEZ [facility] [address] [place] [address]
[2020-01-03] MEDS ORDERED: CO Q-1050 MG PO (07:21)
[2020-01-03] MEDS ORDERED: STOOL SOFTENER240 MG PO (07:22)
[2020-01-03 07:40] VITALS: BP 122/72; Ht 172.7 cm; Wt 61.8 kg
[2020-01-03 08:15] LABS: BASOPHILS 0.5 % (0-2); EOSINOPHILS 1.3 % (0-7); HEMATOCRIT 42.2 % (36.0-48.0); HEMOGLOBIN 14.6 g/dL (12-16); IMMATURE GRANULOCYTES 0.3 % (0-5); LYMPHOCYTES 24.1 % (15-50); MCH 32.2 pg (26.0-34.0); MCHC 34.6 g/dL (31.0-37.0); MCV 93.2 fL (80.0-100.0); MONOCYTES 10.7 % (2-11); NEUTROPHILS 63.1 % (40-80); RBC 4.53 10x6/uL (4.00-5.40); RDW 13.3 % (11.5-14.5)
[2020-01-03 08:20] LABS: PLATELET COUNT 161 10x3/uL (130-400)
--- NOTE | 2020-01-03 09:05 | NUR ---
PT RECEIVED VIA STRETCHER FROM AD OPERATIONS COORDINATOR FOR RECOVERY. PT SLEEPING BUT VERBALLY AROUSABLE. IV PATENT INFUSING VIA L ARM PER ORDERS. R GROIN SOFT, DRESSING CDI NO S/S HEMATOMA OR BLEEDING. LEG PINK AND WARM, PEDAL PULSES PALPABLE. PT PLACED ON CARDIAC MONITORS AND O2 VIA NC AT 2L. HR NSR RATE 56, BP 117/65, RR 14, SAT 94. DR FULLER IN ROOM SPEAKING WITH SISTER REGARDING PROCEDURE FINDINGS. CALL LIGHT IN REACH.
[2020-01-03 09:27] LABS: ANION GAP 15.9 mmol/L (8-16); CALCIUM 9.4 mg/dL (8.5-10.1); CARBON DIOXIDE 25.9 mmol/L (21.0-32.0); CHOL - HDL RATIO 4.5 ratio (2.3-4.1); POTASSIUM - SERUM 3.8 mmol/L (3.5-5.1)
--- NOTE | 2020-01-03 09:30 | NUR ---
PT STILL SLEEPING, R GROIN SOFT AND DRESSING REMAINS CDI. NO S/S HEMATOMA OR BLEEDING. BP DECREASED SLIGHTLY, FLUIDS INCREASED. SISTER REMAINS AT BS. CALL LIGHT IN REACH
--- NOTE | 2020-01-03 10:14 | NUR ---
DR FULLER AT , NO NEW ORDERS RECEIVED. R GROIN SOFT, DRESSING CDI NO S/S HEMATOMA. HOB ELEVATED SLIGHTLY. COFFEE AND CRACKERS GIVEN PER PT REQUEST. VSS, CALL LIGHT IN REACH
--- NOTE | 2020-01-03 10:54 | NUR ---
DISCHARGE INSTRUCTIONS REVIEWED W PT AND SISTER, BOTH VERBALIZED UNDERSTANDING. IV REMOVED W CATH INTACT. MONITORS REMOVED. R GROIN SOFT, DRESSING CDI NO S/S HEMATOMA OR BLEEDING. PT UP TO DRESS WITH ASSIST FROM SISTER.
--- NOTE | 2020-01-03 11:05 | NUR ---
PT TO BR VIA WC, VOIDING W/O DIFFICULITY. PT THEN DISCHARGED TO PRIVATE VEHICLE VIA WC WITH ALL BELONGINGS AND DISCHARGE PAPERWORK
--- NOTE | 2020-01-04 08:24 | OP ---
PATIENT NAME: DERRICK NOVOA MEDICAL RECORD: [id number] :64 LOCATION:D.CAT ADMISSION DATE: SURGEON: UMBERTO FULLER MD DATE OF OPERATION: 01/03/2020 PROCEDURE: Left heart catheterization, selective coronary angiography plus iFR wire, right femoral artery approach. CATHETERS: A 5-Albanian sheath, 5/4 left and right Justice, 5/4 pig. The procedure was well tolerated. The patient returned to the connelly. Sheath removed. ExoSeal device placed. FINDINGS: Left ventriculography in 30-degree IRWIN view: Normal wall motion. Normal systolic function. CORONARY ANATOMY: LEFT MAIN: Short vessel, free of disease. LAD: End-stent restenosis involving the ostium of the LAD that is most significant via iFR wire. CIRCUMFLEX: Small vessel, free of disease. RIGHT CORONARY ARTERY: This is a large vessel after previous intervention; however, this is now totally occluded, fills via [id number] collaterals. IMPRESSION: Aggressive restenosis including in- and end-stent restenosis, long-term revascularization and I think best to proceed with bypass grafting. Discussed with family and the patient. NTS:[id number] Voice Confirmation ID: [id number] DOCUMENT ID: [id number] UMBERTO FULLER MD at 0824 CC: [id number] DICTATION DATE: 01/03/20914 ASSISTANT LIBRARIAN: 01/03/201807 [facility] 01/03/20 [id number] [place] [address]
== END 2020-01-03 11:05 | disposition home or self-care (01) ==
LOC: D.CATH 07:12
PROVIDERS: ATTEND Internal Medicine Interventional Cardiology
DX: R07.9 Chest pain, unspecified (principal); R06.00 Dyspnea, unspecified; I25.10 Atherosclerotic heart disease of native coronary artery without angina pectoris; I10 Essential (primary) hypertension; E78.5 Hyperlipidemia, unspecified